=== PATIENT | female | born 1995 | race Caucasian/White ===

== ENCOUNTER 2017-03-21 11:32 | Outpatient (CLI) | payer MEDICAID | END 2017-03-21 13:33 | disposition home or self-care (01) | LOC: MW.OBCHECK 11:32 → MW.OB 11:35 → MW.OBCHECK 13:33 | PROVIDERS: ATTEND Obstetrics & Gynecology | DX: O26.893 Other specified pregnancy related conditions, third trimester (principal); R10.9 Unspecified abdominal pain; Z3A.36 36 weeks gestation of pregnancy | CPT/HCPCS: 59025 ==

== ENCOUNTER 2017-03-22 14:27 | Inpatient (IN) | payer MEDICAID ==
[2017-03-22] MEDS ORDERED: Morphine 2 MG/ML Syringe IVPUSH ONE (16:59)
[2017-03-22] MEDS: Lactated Ringers 1,000 ML IV SCH ×3 (17:25→19:50)
[2017-03-22] MEDS ORDERED: Water For Irrigation,Sterile 1,000 ML Container IRR PRN (18:20)
[2017-03-22] MEDS ORDERED: Sodium Chloride 0.9% 2.5 ML Syringe FLUSH PRN (18:20)
[2017-03-22] MEDS ORDERED: Methylergonovine 0.2 MG/1 ML Amp IM PRN (18:20)
[2017-03-22] MEDS ORDERED: Carboprost Tromethamine 250 MCG/1 ML Amp IM PRN (18:20)
[2017-03-22] MEDS ORDERED: Butorphanol 1 MG/ML SDV IVPUSH PRN (18:20)
[2017-03-22] MEDS ORDERED: Misoprostol 200 MCG Tab PO PRN (18:20)
[2017-03-22] MEDS ORDERED: Sodium Chloride 0.9% 10 ML Syringe FLUSH PRN (18:20)
[2017-03-22] MEDS ORDERED: Nalbuphine 10 MG/1 ML Vial IVPUSH PRN (18:20)
[2017-03-22] MEDS ORDERED: Lidocaine 1% 50 ML MDV INJECT PRN (18:20)
--- NOTE | 2017-03-22 18:21 | PCM.PREANE ---
Preanesthetic Assessment - Anesthesia/Transfusion/Family Hx Anesthesia History: Prior Anesthesia Without Reaction Family History of Anesthesia Reaction: No - Review of Systems Other: Reports: None - Physical Assessment Height: 5 ft 1.81 in Weight: 66.587 kg ASA Class: 2 Mental Status: Alert & Oriented x3 Airway Class: Mallampati = 1 Dentition: Reports: Normal Dentition Thyro-Mental Finger Breadths: 3 Mouth Opening Finger Breadths: 3 ROM/Head Extension: Full - Allergies Allergies/Adverse Reactions: Allergies Allergy/AdvReac Type Severity Reaction Status Date / Time No Known Allergies Allergy Verified 02/25/17 09:03 - Blood Blood Available: Yes Product(s) Available: PRBC - Acknowledgements Anesthesia Type Planned: Epidural Pt an Appropriate Candidate for the Planned Anesthesia: Yes Alternatives and Risks of Anesthesia Discussed w Pt/Guardian: Yes Pt/Guardian Understands and Agrees with Anesthesia Plan: Yes PreAnesthesia Questionnaire - Past Surgical History HEENT Surgical History: Reports: Tonsillectomy - CURRENT (IN HOUSE) MEDS Current Meds: Current Medications Lactated Ringer's (Ringers, Lactated) 1,000 mls @ 1,000 mls/hr IV .BOLUS DAVID Last Admin: 03/22/17 17:25 Dose: 1,000 mls/hr Discontinued Medications Morphine Sulfate (Morphine) 2 mg IVPUSH ONETIME ONE Stop: 03/22/17 17:00 Last Admin: 03/22/17 17:29 Dose: 2 mg
[2017-03-22] MEDS ORDERED: fentaNYL 100 MCG/2 ML SDV ONE (19:06)
[2017-03-22] MEDS ORDERED: Ropivacaine HCl/PF 100 ML ONE (19:07)
[2017-03-22] MEDS ORDERED: Ropivacaine 0.2% 2 MG/ML 20 ML SDV ONE (19:07)
[2017-03-23] MEDS: Lactated Ringers 1,000 ML IV SCH ×2 (00:55→01:54)
[2017-03-23] MEDS ORDERED: Acetaminophen 500 MG Tab PO STA (01:40)
[2017-03-23] MEDS ORDERED: Sodium Chloride 0.9% 500 ML IV ONE (01:42)
[2017-03-23] MEDS ORDERED: Acetaminophen 500 MG Tab ONE (01:44)
[2017-03-23] MEDS ORDERED: Oxytocin/Lactated Ringers 30 UNIT/500 ML BAG ONE (04:26)
[2017-03-23] MEDS ORDERED: Ropivacaine HCl/PF 100 ML ONE (04:31)
[2017-03-23] MEDS ORDERED: fentaNYL 100 MCG/2 ML SDV ONE (04:31)
[2017-03-23] MEDS ORDERED: Bupivacaine 0.5% 10 ML SDV ONE (06:01)
[2017-03-23] MEDS ORDERED: Lanolin 100% Cream 7 GM Tube TOP PRN (09:23)
[2017-03-23] MEDS ORDERED: oxyCODONE 5 MG Tab PO PRN (09:23)
[2017-03-23] MEDS ORDERED: Docusate Sodium 100 MG Cap PO PRN (09:23)
[2017-03-23] MEDS ORDERED: Benzocaine/Menthol 20%-0.5% Spray 78 GM Cannister TOP PRN (09:23)
[2017-03-23] MEDS ORDERED: Bisacodyl 10 MG Supp RECTAL PRN (09:23)
[2017-03-23] MEDS ORDERED: Witch Hazel Medicated Pads 40/Jar TOP PRN (09:23)
[2017-03-23] MEDS ORDERED: Methylergonovine 0.2 MG/1 ML Amp IM PRN (09:23)
[2017-03-23] MEDS: Ibuprofen 800 MG Tab PO PRN (10:28)
[2017-03-23] MEDS: Acetaminophen 500 MG Tab PO PRN (10:30)
--- NOTE | 2017-03-23 14:29 | OR ---
SURGEON: Kym Contreras M.D. DATE OF PROCEDURE: 03/23/2017 PREOPERATIVE DIAGNOSES: A 39 and 5/7th week intrauterine , active spontaneous labor, group B strep negative with meconium-stained amniotic fluid. POSTOPERATIVE DIAGNOSES: A 39 and 5/7th week intrauterine , active spontaneous labor, group B strep negative with meconium-stained amniotic fluid. PROCEDURE: Term spontaneous vaginal delivery with repair of vaginal laceration. ANESTHESIA: Epidural. ESTIMATED BLOOD LOSS: Less than 300 mL. FINDINGS: Live born female, score 7 and 9, weighing 2590 g. Placenta was delivered spontaneous, Schultze intact with 3 vessels. However, it was very malodorous. Therefore, cultures were obtained. COMPLICATIONS: None known. DISPOSITION: Stable to recovery. BRIEF HISTORY: This is a 21-year-old female. She is G1, P0. She presents at 39 and 4/7th weeks' with active spontaneous labor. She presented in the prodromal stage, was admitted when she was 3 to 4 cm. She continued to labor spontaneously. She received an epidural for pain control. heart tones were overall category 1 with episodes of category 2, rupture of membranes that was made of thick meconium. She had a single temp during labor which resolved. She was not started on antibiotics. She progressed to complete. DESCRIPTION OF PROCEDURE: With the patient in the dorsal lithotomy position, the patient pushed over 1- hour time period to a 5+ station, at which time the head was delivered spontaneously and atraumatically over the perineum with support. Deep suction was performed on the perineum due to meconium. The anterior and posterior shoulders were delivered without any difficulty with subsequent delivery of the infant's body. The was placed on the maternal abdomen. Immediately upon delivery of the , a foul odor of the amniotic fluid was noted. The was stimulated and had score of 7 and 9. After the cord had ceased to pulsate, it was doubly clamped and cut. Cord blood was collected for cord ABGs as well as routine cord blood sampling. Pitocin was initiated after delivery of the to assist with delivery of the placenta, which was delivered spontaneously, Schultze intact with 3 vessels. Upon inspection of the pelvis and perineum, there were no periurethral, cervical, rectal, or perineal lacerations. At 5 o'clock, there was a 1.5 cm vaginal laceration that was repaired with a single [id number] suture of 3-0 Monocryl. Final sponge, needle, and instrument count were correct. There were no known complications. Mother and remained in LDRP in good condition. HODA MERIDA /[id number]
--- NOTE | 2017-03-23 14:48 | PCM48HPAN ---
Post Anesthesia Note - EVALUATION WITHIN 48HRS OF ANESTHETIC Vital Signs in Normal Range: Yes Patient Participated in Evaluation: Yes Respiratory Function Stable: Yes Airway Patent: Yes Cardiovascular Function Stable: Yes Hydration Status Stable: Yes Pain Control Satisfactory: Yes Nausea and Vomiting Control Satisfactory: Yes Mental Status Recovered: Yes
[2017-03-24] MEDS: Ibuprofen 800 MG Tab PO PRN ×2 (01:36→09:19)
[2017-03-24] MEDS: Acetaminophen 500 MG Tab PO PRN ×3 (04:59→17:09)
--- NOTE | 2017-03-24 08:15 | PCM.PNPP ---
- General Info Date of Service: 03/24/17 Functional Status: Reports: pain controlled, tolerating diet, urinating - Review of Systems General: Denies: Fever, Weakness Pulmonary: Denies: shortness of breath, pleuritic chest pain, cough Cardiovascular: Denies: Chest Pain, Palpitations, Dyspnea on Exertion Gastrointestinal: Reports: No symptoms Psychiatric: Reports: no symptoms - General Info Date of Service: 03/24/17 - Patient Data Vital Signs - most recent: Last Vital Signs Temp 36.2 C 03/24/17 04:00 Pulse 74 03/24/17 04:00 Resp 14 03/24/17 04:00 BP 109/58 L 03/24/17 04:00 Pulse Ox 98 03/24/17 04:00 Weight - most recent: 66.224 kg I&O - last 24 hours: Intake & Output 03/23/17 03/24/17 03/24/17 22:59 06:59 14:59 Intake Total 0 Balance 0 Lab Results - last 24 hrs: Laboratory Results - last 24 hr 03/23/17 03/24/17 Range/Units 10:25 04:31 Hgb 10.6 L (12.0-16.0) g/dL Hct 31.7 L (36.0-46.0) % Screen NEGATIVE RhIG Candidate? YES Rhogam Indicated YES, BABY RH POS H Med Orders - Current: Current Medications Acetaminophen (Tylenol Extra Strength) 1,000 mg PO Q4H PRN PRN Reason: Pain Last Admin: 03/24/17 04:59 Dose: 1,000 mg Benzocaine/Menthol (Dermoplast Pain Relief 20%-0.5% [place]) 78 gm TOP ASDIRECTED PRN PRN Reason: Perineal Comfort Measure Last Admin: 03/23/17 10:27 Dose: 1 can Bisacodyl (Dulcolax) 10 mg RECTAL .ONCE PRN PRN Reason: Constipation Docusate Sodium (Colace) 100 mg PO BID PRN PRN Reason: Constipation Last Admin: 03/23/17 10:30 Dose: 100 mg Emollient Ointment (Lansinoh Hpa) 0 gm TOP ASDIRECTED PRN PRN Reason: Sore Nipples Last Admin: 03/23/17 10:28 Dose: 1 tube Ibuprofen (Motrin) 800 mg PO Q6H PRN PRN Reason: Pain Last Admin: 03/24/17 01:36 Dose: 800 mg Methylergonovine Maleate (Methergine) 0.2 mg IM .ONCE PRN PRN Reason: Excessive Vaginal Bleeding Oxycodone HCl (Oxycodone) 5 mg PO Q2H PRN PRN Reason: Pain Last Admin: 03/23/17 17:12 Dose: 5 mg Witch Shahrzad (Tucks) 1 pad TOP ASDIRECTED PRN PRN Reason: comfort care Last Admin: 03/23/17 10:27 Dose: 1 tub Discontinued Medications Acetaminophen (Tylenol Extra Strength) 1,000 mg PO ONETIME STA Stop: 03/23/17 01:41 Last Admin: 03/23/17 01:46 Dose: 1,000 mg Acetaminophen (Tylenol Extra Strength) Confirm Administered Dose 1,000 mg .ROUTE .STK-MED ONE Stop: 03/23/17 01:45 Last Admin: 03/23/17 01:56 Dose: Not Given Bupivacaine HCl (Sensorcaine-Mpf 0.5%) Confirm Administered Dose 10 ml .ROUTE .STK-MED ONE Stop: 03/23/17 06:02 Last Admin: 03/24/17 01:26 Dose: Not Given Butorphanol Tartrate (Stadol) 1 mg IVPUSH Q1H PRN PRN Reason: Pain Carboprost Tromethamine (Hemabate Ds) 250 mcg IM ASDIRECTED PRN PRN Reason: Post Hemorrhage Fentanyl (Sublimaze) Confirm Administered Dose 200 mcg .ROUTE .STK-MED ONE Stop: 03/22/17 19:07 Last Admin: 03/22/17 21:11 Dose: Not Given Fentanyl (Sublimaze) Confirm Administered Dose 200 mcg .ROUTE .STK-MED ONE Stop: 03/23/17 04:32 Last Admin: 03/24/17 01:26 Dose: Not Given Lactated Ringer's (Ringers, Lactated) 1,000 mls @ 1,000 mls/hr IV .BOLUS DAVID Last Admin: 03/23/17 01:54 Dose: 150 mls/hr Lactated Ringer's (Ringers, Lactated) 1,000 mls @ 150 mls/hr IV ASDIRECTED DAVID Last Admin: 03/23/17 00:55 Dose: 150 mls/hr Ropivacaine (Naropin 0.2%) Confirm Administered Dose 100 mls @ as directed .ROUTE .[email or web address] ONE Stop: 03/22/17 19:08 Last Admin: 03/22/17 21:10 Dose: Not Given Sodium Chloride (Normal Saline) 500 mls @ 1,000 mls/hr IV ONETIME ONE Stop: 03/23/17 02:11 Last Admin: 03/23/17 01:56 Dose: Not Given Oxytocin/Lactated Ringer's (Pitocin In Lr 30 Units/500 Ml) Confirm Administered Dose 30 unit in 500 mls @ as directed .ROUTE .[email or web address] ONE Stop: 03/23/17 04:27 Last Admin: 03/23/17 09:03 Dose: 30 unit Ropivacaine (Naropin 0.2%) Confirm Administered Dose 100 mls @ as directed .ROUTE [email or web address] ONE Stop: 03/23/17 04:32 Last Admin: 03/24/17 01:26 Dose: Not Given Lidocaine HCl (Xylocaine 1%) 50 ml INJECT .ONCE PRN PRN Reason: Laceration repair Methylergonovine Maleate (Methergine) 0.2 mg IM ASDIRECTED PRN PRN Reason: Post Hemorrhage Misoprostol (Cytotec) 200 mcg PO .ONCE PRN PRN Reason: Post Hemorrhage Morphine Sulfate (Morphine) 2 mg IVPUSH ONETIME ONE Stop: 03/22/17 17:00 Last Admin: 03/22/17 17:29 Dose: 2 mg Nalbuphine HCl (Nubain) 10 mg IVPUSH Q1H PRN PRN Reason: Pain (severe 7-10) Stop: 03/22/17 20:21 Ropivacaine (Naropin 0.2%) Confirm Administered Dose 20 ml .ROUTE [email or web address] ONE Stop: 03/22/17 19:08 Last Admin: 03/22/17 21:10 Dose: Not Given Sodium Chloride (Saline Flush) 10 ml FLUSH ASDIRECTED PRN PRN Reason: Keep Vein Open Sodium Chloride (Saline Flush) 2.5 ml FLUSH ASDIRECTED PRN PRN Reason: Keep Vein Open Sterile Water (Sterile Water For Irrigation) 1,000 ml IRR ASDIRECTED PRN PRN Reason: delivery Last Admin: 03/23/17 09:00 Dose: 1,000 ml - Interaction Infant Disposition, : to Nursery Infant Feeding: Attempted ; Nursed Fair/Poor Support Person: Mother, Sister - Recovery Exam Fundal Tone: Firm Fundal Level: 1 Fingerbreadths Below Umbilicus Fundal Placement: Midline Lochia Amount: Scant, Small Lochia Color: Rubra/Red Perineum Description: Intact, Minimal Bruising/Swelling Episiotomy/Laceration: None Bladder Status: Voiding Urinary Elimination: Voided - Exam General: alert, oriented Lungs: Clear to auscultation, Normal respiratory effort Cardiovascular: Regular Rate, Regular Rhythm Abdomen: bowel sounds present, soft, no tenderness, no distension Extremities: no edema Psy/Mental Status: alert - Problem List & Annotations (1) Vaginal delivery SNOMED Code(s): 279306541 Code(s): O80 - ENCOUNTER FOR FULL-TERM UNCOMPLICATED DELIVERY Status: Acute Current Visit: Yes - Problem List Review Problem List Initiated/Reviewed/Updated: Yes - Assessment Assessment:: PPD#1 from . Minimal pain and lochia. Will work on today. Aim for discharge tomorrow am. - Plan Plan:: Continue routine cares. Anticipate discharge home tomorrow.
--- NOTE | 2017-03-25 08:14 | PCM.PNPP ---
- General Info Date of Service: 03/25/17 Functional Status: Reports: pain controlled, tolerating diet, ambulating, urinating - Review of Systems General: Denies: Fever, Weakness, Fatigue Pulmonary: Denies: shortness of breath, pleuritic chest pain, cough Cardiovascular: Denies: Chest Pain, Palpitations, Dyspnea on Exertion Gastrointestinal: Denies: Abdominal pain Genitourinary: Reports: no symptoms Psychiatric: Reports: no symptoms - General Info Date of Service: 03/25/17 - Patient Data Vital Signs - most recent: Last Vital Signs Temp 36.6 C 03/25/17 04:00 Pulse 83 03/25/17 04:00 Resp 12 03/25/17 04:00 BP 117/59 L 03/25/17 04:00 Pulse Ox 100 03/25/17 04:00 Weight - most recent: 66.224 kg Med Orders - Current: Current Medications Acetaminophen (Tylenol Extra Strength) 1,000 mg PO Q4H PRN PRN Reason: Pain Last Admin: 03/24/17 17:09 Dose: 1,000 mg Benzocaine/Menthol (Dermoplast Pain Relief 20%-0.5% [place]) 78 gm TOP ASDIRECTED PRN PRN Reason: Perineal Comfort Measure Last Admin: 03/23/17 10:27 Dose: 1 can Bisacodyl (Dulcolax) 10 mg RECTAL .ONCE PRN PRN Reason: Constipation Docusate Sodium (Colace) 100 mg PO BID PRN PRN Reason: Constipation Last Admin: 03/23/17 10:30 Dose: 100 mg Emollient Ointment (Lansinoh Hpa) 0 gm TOP ASDIRECTED PRN PRN Reason: Sore Nipples Last Admin: 03/23/17 10:28 Dose: 1 tube Ibuprofen (Motrin) 800 mg PO Q6H PRN PRN Reason: Pain Last Admin: 03/24/17 09:19 Dose: 800 mg Methylergonovine Maleate (Methergine) 0.2 mg IM .ONCE PRN PRN Reason: Excessive Vaginal Bleeding Oxycodone HCl (Oxycodone) 5 mg PO Q2H PRN PRN Reason: Pain Last Admin: 03/23/17 17:12 Dose: 5 mg Witch Shahrzad (Tucks) 1 pad TOP ASDIRECTED PRN PRN Reason: comfort care Last Admin: 03/23/17 10:27 Dose: 1 tub Discontinued Medications Acetaminophen (Tylenol Extra Strength) 1,000 mg PO ONETIME STA Stop: 03/23/17 01:41 Last Admin: 03/23/17 01:46 Dose: 1,000 mg Acetaminophen (Tylenol Extra Strength) Confirm Administered Dose 1,000 mg .ROUTE .[facility]-MED ONE Stop: 03/23/17 01:45 Last Admin: 03/23/17 01:56 Dose: Not Given Bupivacaine HCl (Sensorcaine-Mpf 0.5%) Confirm Administered Dose 10 ml .ROUTE .[facility]-MED ONE Stop: 03/23/17 06:02 Last Admin: 03/24/17 01:26 Dose: Not Given Butorphanol Tartrate (Stadol) 1 mg IVPUSH Q1H PRN PRN Reason: Pain Carboprost Tromethamine (Hemabate Ds) 250 mcg IM ASDIRECTED PRN PRN Reason: Post Hemorrhage Fentanyl (Sublimaze) Confirm Administered Dose 200 mcg .ROUTE .[facility] ONE Stop: 03/22/17 19:07 Last Admin: 03/22/17 21:11 Dose: Not Given Fentanyl (Sublimaze) Confirm Administered Dose 200 mcg .ROUTE .[facility]-MED ONE Stop: 03/23/17 04:32 Last Admin: 03/24/17 01:26 Dose: Not Given Lactated Ringer's (Ringers, Lactated) 1,000 mls @ 1,000 mls/hr IV .BOLUS [facility] Last Admin: 03/23/17 01:54 Dose: 150 mls/hr Lactated Ringer's (Ringers, Lactated) 1,000 mls @ 150 mls/hr IV ASDIRECTED [facility] Last Admin: 03/23/17 00:55 Dose: 150 mls/hr Ropivacaine (Naropin 0.2%) Confirm Administered Dose 100 mls @ as directed .ROUTE .[facility]-MED ONE Stop: 03/22/17 19:08 Last Admin: 03/22/17 21:10 Dose: Not Given Sodium Chloride (Normal Saline) 500 mls @ 1,000 mls/hr IV ONETIME ONE Stop: 03/23/17 02:11 Last Admin: 03/23/17 01:56 Dose: Not Given Oxytocin/Lactated Ringer's (Pitocin In Lr 30 Units/500 Ml) Confirm Administered Dose 30 unit in 500 mls @ as directed .ROUTE .[employer]MED ONE Stop: 03/23/17 04:27 Last Admin: 03/23/17 09:03 Dose: 30 unit Ropivacaine (Naropin 0.2%) Confirm Administered Dose 100 mls @ as directed .ROUTE .[employer] ONE Stop: 03/23/17 04:32 Last Admin: 03/24/17 01:26 Dose: Not Given Lidocaine HCl (Xylocaine 1%) 50 ml INJECT .ONCE PRN PRN Reason: Laceration repair Methylergonovine Maleate (Methergine) 0.2 mg IM ASDIRECTED PRN PRN Reason: Post Hemorrhage Misoprostol (Cytotec) 200 mcg PO .ONCE PRN PRN Reason: Post Hemorrhage Morphine Sulfate (Morphine) 2 mg IVPUSH ONETIME ONE Stop: 03/22/17 17:00 Last Admin: 03/22/17 17:29 Dose: 2 mg Nalbuphine HCl (Nubain) 10 mg IVPUSH Q1H PRN PRN Reason: Pain (severe 7-10) Stop: 03/22/17 20:21 Ropivacaine (Naropin 0.2%) Confirm Administered Dose 20 ml .ROUTE .[employer] ONE Stop: 03/22/17 19:08 Last Admin: 03/22/17 21:10 Dose: Not Given Sodium Chloride (Saline Flush) 10 ml FLUSH ASDIRECTED PRN PRN Reason: Keep Vein Open Sodium Chloride (Saline Flush) 2.5 ml FLUSH ASDIRECTED PRN PRN Reason: Keep Vein Open Sterile Water (Sterile Water For Irrigation) 1,000 ml IRR ASDIRECTED PRN PRN Reason: delivery Last Admin: 03/23/17 09:00 Dose: 1,000 ml - Infant Interaction Infant Disposition, : to Nursery Infant Feeding: Attempted ; Nursed Fair/Poor Support Person: Mother, Sister - Recovery Exam Fundal Tone: Firm Fundal Level: 2 Fingerbreadths Below Umbilicus Fundal Placement: Midline Lochia Amount: Small Lochia Color: Rubra/Red Perineum Description: Intact, Minimal Bruising/Swelling Episiotomy/Laceration: Approximated Bladder Status: Nonpalpable Urinary Elimination: Voided - Exam General: alert, oriented Neck: supple Lungs: Clear to auscultation, Normal respiratory effort Cardiovascular: Regular Rate, Regular Rhythm Abdomen: bowel sounds present, soft, no tenderness, no distension Extremities: edema (trace) Psy/Mental Status: alert, normal affect, normal mood - Problem List & Annotations (1) Vaginal delivery SNOMED Code(s): 035728966 Code(s): O80 - ENCOUNTER FOR FULL-TERM UNCOMPLICATED DELIVERY Status: Acute Current Visit: Yes - Problem List Review Problem List Initiated/Reviewed/Updated: Yes - Assessment Assessment:: PPD#2 from . Minimal pain and lochia. Discharge home today. - Plan Plan:: Discharge instructions reviewed. Nothing in the vagina for 6 weeks. Continue PNV while breast feeding. Can use OTC ibuprofen/tylenol as needed for pain. Instructed patient to call if she develops fever greater than 101 or bleeding through a large pad an hour. F/U with [facility] in 6 weeks.
[2017-03-25 08:23] VITALS: BP 113/57
== END 2017-03-25 13:04 | disposition home or self-care (01) | DRG 775 ==
LOC: MW.OBCHECK 14:27 → MW.OB 14:40 → MW.OBCHECK 18:20 → MW.OB 18:20 → UNDOADMOB 18:44 → OBSVTOIN 03-23 09:00 → MW.OB 03-23 12:11 → UNDODISIN 03-24 19:40
PROVIDERS: ADMIT Obstetrics & Gynecology; ATTEND Obstetrics & Gynecology
PROC: 10E0XZZ Delivery of Products of Conception, External Approach (ICD-10-PCS; principal; 2017-03-23)
PROC: 10907ZC Drainage of Amniotic Fluid, Therapeutic from Products of Conception, Via Natural or Artificial Opening (ICD-10-PCS; 2017-03-23)
PROC: 0HQ9XZZ Repair Perineum Skin, External Approach (ICD-10-PCS; 2017-03-23)
DX: O70.0 First degree perineal laceration during delivery (principal); O77.0 Labor and delivery complicated by meconium in amniotic fluid; Z3A.39 39 weeks gestation of pregnancy; Z37.0 Single live birth
CPT/HCPCS: 01967; 36415; 59025; 85014; 85018; 85027; 85460; 86850; 86900; 86901; 87070; 87075; 88307; A9270-GY; J2270; J2790; J2795; J3010; J7120

== ENCOUNTER 2017-11-05 00:26 | Emergency (ER) | payer SELFPAY ==
[2017-11-05] MEDS ORDERED: Ondansetron 4 MG/2 ML SDV IVPUSH ONE (00:32)
[2017-11-05] MEDS ORDERED: Sodium Chloride 0.9% 10 ML Syringe FLUSH PRN (00:32)
[2017-11-05] MEDS ORDERED: Sodium Chloride 0.9% 2.5 ML Syringe FLUSH PRN (00:32)
[2017-11-05] MEDS ORDERED: Sodium Chloride 0.9% 1,000 ML IV ONE (00:32)
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
[2017-11-05 01:12] LABS: CHLORIDE,CL 112 mmol/L (98-110); SODIUM,NA 145 mmol/L (136-146)
[2017-11-05 02:43] VITALS: BP 99/63
--- NOTE | 2017-11-07 13:23 | CT ---
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 Site : 1995 Study: CT Head [id number] 1:54:56 AM Ordering Physician: Odilia Catalan Final Report: INDICATION: Change in mental status TECHNIQUE: CT head without contrast. COMPARISON: None. FINDINGS: CSF spaces: Within normal limits for age. Brain parenchyma: The durand-white differentiation is normal. No sign of mass, hemorrhage, or midline shift. Skull base and calvarium: The visualized paranasal sinuses and mastoid air cells demonstrate no acute or significant findings. The visualized orbits are grossly unremarkable. No skull fractures. IMPRESSION: Unremarkable noncontrast head CT. Dictated by Cecilio Park MD @ 11/05/2017 2:09:00 AM Dictated by: Cecilio Park MD @ 11/05/2017 02:09:05 (Electronic Signature) Report Signed by Proxy. HELEN HAYES HOSPITALConstantin
== END 2017-11-05 02:30 | disposition home or self-care (01) ==
LOC: MW.ED 00:26
DX: F10.120 Alcohol abuse with intoxication, uncomplicated (principal)
CPT/HCPCS: 36415; 70450; 80053; 80305; 81001; 81025; 82150; 83690; 85025; 96361; 96374; 99285; G0480; J2405; J7040; 99284

== ENCOUNTER 2019-04-22 05:32 | Inpatient (IN) | payer MEDICAID ==
[2019-04-22] MEDS ORDERED: Water For Irrigation,Sterile 1,000 ML Container IRR PRN (07:19)
[2019-04-22] MEDS ORDERED: Sodium Chloride 0.9% 2.5 ML Syringe FLUSH PRN (07:19)
[2019-04-22] MEDS ORDERED: Sodium Chloride 0.9% 10 ML SDV IV PRN (07:19)
[2019-04-22] MEDS ORDERED: Misoprostol 200 MCG Tab PO PRN (07:19)
[2019-04-22] MEDS ORDERED: Methylergonovine 0.2 MG/1 ML Amp IM PRN (07:19)
[2019-04-22] MEDS ORDERED: Lidocaine 1% 50 ML MDV INJECT PRN (07:19)
[2019-04-22] MEDS ORDERED: Sodium Chloride 0.9% 10 ML Syringe FLUSH PRN (07:19)
[2019-04-22] MEDS ORDERED: Nalbuphine 10 MG/1 ML Vial IVPUSH PRN ×2 (07:19→11:13)
[2019-04-22] MEDS ORDERED: Carboprost Tromethamine 250 MCG/1 ML Amp IM PRN (07:19)
[2019-04-22] MEDS ORDERED: Ondansetron 4 MG/2 ML SDV IV PRN (07:19)
[2019-04-22] MEDS ORDERED: Tranexamic Acid 1,000 MG in Sodium Chloride 0.9% 100 ML IV PRN (07:19)
[2019-04-22] MEDS ORDERED: Butorphanol 1 MG/ML SDV IVPUSH PRN (07:19)
[2019-04-22] MEDS ORDERED: Lactated Ringers 1,000 ML IV SCH ×2 (07:30→12:15)
[2019-04-22] MEDS ORDERED: Oxytocin/0.9 % Sodium Chloride 30 UNIT/500 ML BAG IV SCH (07:30)
[2019-04-22] MEDS ORDERED: Propofol 200 MG/20 ML SDV ONE (09:34)
[2019-04-22] MEDS ORDERED: fentaNYL 100 MCG/2 ML SDV ONE (09:34)
[2019-04-22] MEDS ORDERED: Ondansetron 4 MG/2 ML SDV ONE (09:34)
[2019-04-22] MEDS ORDERED: ePHEDrine 50 MG/ML SDV ONE (09:35)
[2019-04-22] MEDS ORDERED: Phenylephrine/Normal Saline 100 MCG/ML 10 ML Syringe ONE (09:35)
[2019-04-22] MEDS ORDERED: Morphine PF 10 MG/10 ML SDV ONE (09:36)
[2019-04-22] MEDS ORDERED: Sodium Chloride 0.9% 0 ML ONE (09:38)
[2019-04-22] MEDS ORDERED: Oxytocin/0.9 % Sodium Chloride 30 UNIT/500 ML BAG ONE (09:38)
[2019-04-22] MEDS ORDERED: Sodium Chloride 0.9% 20 ML ONE (09:39)
[2019-04-22] MEDS ORDERED: ceFAZolin/Dextrose,Iso-Osmotic 2 GM/50 ML Duplex Bag IV ONE (09:42)
[2019-04-22] MEDS ORDERED: Octyl 2-Cyanoacrylate 1 Tube ONE (09:57)
[2019-04-22] MEDS ORDERED: fentaNYL 100 MCG/2 ML SDV IVPUSH PRN (11:13)
[2019-04-22] MEDS ORDERED: Acetaminophen/oxyCODONE 325-5 MG Tab PO PRN ×2 (11:13→12:08)
[2019-04-22] MEDS ORDERED: Naloxone 0.4 MG/ML Syringe IVPUSH PRN (11:13)
[2019-04-22] MEDS ORDERED: Ondansetron 4 MG/2 ML SDV IVPUSH PRN ×2 (11:13→12:08)
[2019-04-22] MEDS ORDERED: diphenhydrAMINE 50 MG/ML SDV IVPUSH PRN ×2 (11:13→12:08)
[2019-04-22] MEDS ORDERED: Ketorolac 30 MG/ML SDV ONE (11:27)
--- NOTE | 2019-04-22 11:41 | PCM.POSTAN ---
POST ANESTHESIA ASSESSMENT - MENTAL STATUS Mental Status: Alert - VITAL SIGNS Pulse Rate: 77 SaO2: 94 Resp Rate: 15 Blood Pressure: 111/61 Temperature: 36.2 C - RESPIRATORY Respiratory Status: Respiratory Rate WNL - CARDIOVASCULAR CV Status: Pulse Rate WNL - GASTROINTESTINAL GI Status: No Symptoms - PAIN Pain Score: 0 (SAB still present. Duramorph given. Ofirmev given.) - POST OP HYDRATION Hydration Status: Adequate & Stable - OBSERVATIONS Free Text/Narrative:: Doing well. No problems noted. Ready for discharge from PACU
--- NOTE | 2019-04-22 11:59 | PCM.PREANE ---
Preanesthetic Assessment - Anesthesia/Transfusion/Family Hx Anesthesia History: Prior Anesthesia Without Reaction Transfusion History: No Prior Transfusion(s) - Review of Systems General: No Symptoms Pulmonary: No Symptoms Cardiovascular: No Symptoms Gastrointestinal: No Symptoms Neurological: No Symptoms Other: Reports: None - Physical Assessment NPO Status Date: 04/22/19 NPO Status Time: 03:00 Pulse: 77 O2 Sat by Pulse Oximetry: 94 Respiratory Rate: 15 Blood Pressure: 111/61 Temperature: 36.2 C Vital Signs: Last Vital Signs Temp 36.2 C 04/22/19 11:41 Pulse 77 04/22/19 11:41 Resp 15 04/22/19 11:41 BP 111/61 04/22/19 11:41 Pulse Ox 94 L 04/22/19 11:41 Height: 1.57 m Weight: 70.307 kg ASA Class: 2 Airway Class: Mallampati = 2 Dentition: Reports: Normal Dentition Thyro-Mental Finger Breadths: 3 Mouth Opening Finger Breadths: 3 ROM/Head Extension: Full Lungs: Clear to Auscultation Cardiovascular: Regular Rate - Lab Values: Laboratory Last Values WBC 9.33 K/uL (4.0-11.0) 04/22/19 07:46 RBC 3.94 M/uL (4.30-5.90) L 04/22/19 07:46 Hgb 10.7 g/dL (12.0-16.0) L 04/22/19 07:46 Hct 33.9 % (36.0-46.0) L 04/22/19 07:46 MCV 86.0 fL (80.0-98.0) 04/22/19 07:46 MCH 27.2 pg (27.0-32.0) 04/22/19 07:46 MCHC 31.6 g/dL (31.0-37.0) 04/22/19 07:46 RDW Std Deviation 46.3 fl (28.0-62.0) 04/22/19 07:46 RDW Coeff of Lenka 15 % (11.0-15.0) 04/22/19 07:46 Plt Count 235 K/uL (150-400) 04/22/19 07:46 MPV 12.40 fL (7.40-12.00) H 04/22/19 07:46 Nucleated RBC % 0.0 /100WBC 04/22/19 07:46 Nucleated RBCs # 0 K/uL 04/22/19 07:46 Membrane Rupture POSITIVE 04/22/19 06:15 Blood Type O NEGATIVE 04/22/19 07:46 Antibody Screen NEGATIVE 04/22/19 07:46 - Allergies Allergies/Adverse Reactions: Allergies Allergy/AdvReac Type Severity Reaction Status Date / Time No Known Allergies Allergy Verified 11/05/17 00:36 - Blood Blood Available: No Product(s) Available: None - Anesthesia Plan Pre-Op Medication Ordered: None - Acknowledgements Anesthesia Type Planned: Spinal Pt an Appropriate Candidate for the Planned Anesthesia: Yes Alternatives and Risks of Anesthesia Discussed w Pt/Guardian: Yes Pt/Guardian Understands and Agrees with Anesthesia Plan: Yes Additional Comments: Discussed with patient. Understands risks and benefits. ? answered. Fluid bolus given. 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: Psychiatric History: Reports: Anxiety - Infectious Disease History Infectious Disease History: Reports: Chicken Pox, Shingles - Past Surgical History HEENT Surgical History: Reports: Tonsillectomy - SUBSTANCE USE Smoking Status *Q: Former Smoker Tobacco Use Within Last Twelve Months: No Second Hand Smoke Exposure: No Recreational Drug Use History: No - HOME MEDS Home Medications: Home Meds Vits #93/Iron Fum/FA [ Formula Tablet] 1 each PO DAILY [History] valACYclovir HCl [Valtrex] 500 mg PO DAILY 03/27/19 [History] - CURRENT (IN HOUSE) MEDS Current Meds: Current Medications Butorphanol Tartrate (Stadol) 1 mg IVPUSH Q1H PRN PRN Reason: Pain Carboprost Tromethamine (Hemabate Ds) 250 mcg IM ASDIRECTED PRN PRN Reason: Post Hemorrhage Diphenhydramine HCl (Benadryl) 25 mg IVPUSH Q4H PRN PRN Reason: Itching Stop: 04/23/19 11:13 Fentanyl (Sublimaze) 50 mcg IVPUSH Q1H PRN PRN Reason: Pain (severe 7-10) Tranexamic Acid 1,000 mg/ (Sodium Chloride) 110 mls @ 660 mls/hr IV ONETIME PRN PRN Reason: Bleeding Lactated Ringer's (Ringers, Lactated) 1,000 mls @ 150 mls/hr IV ASDIRECTED [facility] Last Admin: 04/22/19 09:04 Dose: 150 mls/hr Oxytocin/Sodium Chloride (Oxytocin 30 Unit/500 Ml-Ns) 30 unit in 500 mls @ 999 mls/hr IV TITRATE [facility] Lidocaine HCl (Xylocaine 1%) 50 ml INJECT ONETIME PRN PRN Reason: Laceration repair Methylergonovine Maleate (Methergine) 0.2 mg IM ASDIRECTED PRN PRN Reason: Post Hemorrhage Misoprostol (Cytotec) 200 mcg PO ONETIME PRN PRN Reason: Post Hemorrhage Nalbuphine HCl (Nubain) 10 mg IVPUSH Q1H PRN PRN Reason: Pain (severe 7-10) Nalbuphine HCl (Nubain) 5 mg IVPUSH ASDIRECTED PRN PRN Reason: Itching Naloxone HCl (Narcan) 0.1 mg IVPUSH ONETIME PRN PRN Reason: Respiratory Depression Stop: 04/23/19 11:13 Ondansetron HCl (Zofran) 4 mg IV Q4H PRN PRN Reason: Nausea/Vomiting Ondansetron HCl (Zofran) 4 mg IVPUSH Q6H PRN PRN Reason: Nausea Oxycodone/Acetaminophen (Percocet 325-5 Mg) 2 tab PO Q6H PRN PRN Reason: Pain (moderate 4-6) Sodium Chloride (Saline Flush) 10 ml FLUSH ASDIRECTED PRN PRN Reason: Keep Vein Open Sodium Chloride (Saline Flush) 2.5 ml FLUSH ASDIRECTED PRN PRN Reason: Keep Vein Open Sodium Chloride (Normal Saline) 10 ml IV ASDIRECTED PRN PRN Reason: IV Use Sterile Water (Sterile Water For Irrigation) 1,000 ml IRR ASDIRECTED PRN PRN Reason: delivery Discontinued Medications Cefazolin Sodium/Dextrose (Ancef) Confirm Administered Dose 2 gm IV .STK-MED ONE Stop: 04/22/19 09:43 Ephedrine Sulfate (Ephedrine Sulfate) Confirm Administered Dose 50 mg .ROUTE .STK-MED ONE Stop: 04/22/19 09:36 Fentanyl (Sublimaze) Confirm Administered Dose 100 mcg .ROUTE .STK-MED ONE Stop: 04/22/19 09:35 Sodium Chloride (Normal Saline) Confirm Administered Dose 20 mls @ as directed .ROUTE .STK-MED ONE Stop: 04/22/19 09:39 Oxytocin/Sodium Chloride (Oxytocin 30 Unit/500 Ml-Ns) Confirm Administered Dose 30 unit in 500 mls @ as directed .ROUTE .STK-MED ONE Stop: 04/22/19 09:39 Sodium Chloride (Normal Saline) Confirm Administered Dose 20 mls @ as directed .ROUTE .STK-MED ONE Stop: 04/22/19 09:40 Acetaminophen (Ofirmev) Confirm Administered Dose 100 mls @ as directed IV .STK- MED ONE Stop: 04/22/19 09:44 Acetaminophen (Ofirmev) Confirm Administered Dose 100 mls @ as directed IV .STK- MED ONE Stop: 04/22/19 09:45 Ketorolac Tromethamine (Toradol) Confirm Administered Dose 30 mg .ROUTE .STK- MED ONE Stop: 04/22/19 11:28 Last Admin: 04/22/19 11:28 Dose: 30 mg Morphine Sulfate (Duramorph Pf) Confirm Administered Dose 10 mg .ROUTE .STK-MED ONE Stop: 04/22/19 09:37 Octyl Cyanoacrylate (Dermabond Advance) Confirm Administered Dose 1 applic .ROUTE .STK-MED ONE Stop: 04/22/19 09:58 Ondansetron HCl (Zofran) Confirm Administered Dose 4 mg .ROUTE .STK-MED ONE Stop: 04/22/19 09:35 Phenylephrine HCl (Phenylephrine In Ns 100 Mcg/Ml) Confirm Administered Dose 1 mg .ROUTE .STK-MED ONE Stop: 04/22/19 09:36 Propofol (Diprivan 20 Ml) Confirm Administered Dose 200 mg .ROUTE .STK-MED ONE Stop: 04/22/19 09:35
[2019-04-22] MEDS ORDERED: Bisacodyl 10 MG Supp RECTAL PRN (12:08)
[2019-04-22] MEDS ORDERED: Aluminum Hydroxide/Magnesium Hydroxide/Simethicone Susp 30 ML Cup PO PRN (12:08)
[2019-04-22] MEDS ORDERED: Lanolin 100% Cream 7 GM Tube TOP PRN (12:08)
--- NOTE | 2019-04-22 12:51 | PCM.OPNOTE ---
- General Post-Op/Procedure Note Date of Surgery/Procedure: 04/22/19 Operative Procedure(s): Primary LTCS Findings: Viable male APGARs 9, 9 weight 8 pounds 4 oz, delivery intact placenta with 3V cord Pre Op Diagnosis: 38/5 week IUP. SROM. Active genital herpes outbreak Post-Op Diagnosis: Same Anesthesia Technique: Spinal Primary Surgeon: Kate Garcia Machine Operator Packaging: Lissa Ernandez Pathology: Placenta to pathology Fluid Replacement, Intraop: 2,300 EBL in mLs: 400 Complications: none known Condition: Good Free Text/Narrative:: Intake & Output 04/21/19 04/22/19 04/22/19 22:59 06:59 14:59 Intake Total 2500 Output Total 200 Balance 2300 Dictation [id number]
--- NOTE | 2019-04-22 14:21 | OR ---
SURGEON: Kate Garcia M.D. DATE OF PROCEDURE: 04/22/2019 PREOPERATIVE DIAGNOSES: 1. 38-5/7 weeks' intrauterine . 2. Spontaneous rupture of membranes. 3. Active genital herpes outbreak. POSTOPERATIVE DIAGNOSES: 1. 38-5/7 weeks' intrauterine . 2. Spontaneous rupture of membranes. 3. Active genital herpes outbreak. PROCEDURE: Primary low-transverse section. PRIMARY SURGEON: Kate Garcia MD. ANESTHESIA: Spinal. ESTIMATED BLOOD LOSS: 400 mL. FLUIDS: 2300 mL of crystalloid. COMPLICATIONS: None known. FINDINGS: Viable male. scores 9 at 1 minute and 9 at 5 minutes. Weight 8 pounds 4 ounces. Delivery of intact placenta, 3-vessel cord. DISPOSITION: in nursery, mom in PACU. PROCEDURE DETAILS: Molly is a 23-year-old G2, P1, at 38-5/7 weeks' gestation, who presented on the morning of 04/22/2019 with spontaneous rupture of membranes. Clear fluid noted. Upon her admission, the patient was noted to be spontaneous rupture and 4 cm dilated. The patient has a history of a primary herpes outbreak in early . She has been on her Valtrex prophylactically. However, she noticed last night she started having a lesion on the clitoral cagle despite taking her Valtrex 500 mg b.i.d. Region was inspected under bright light, and she is found to have a somewhat vesicular lesion on the clitoral cagle. No other lesions are identified. While it does not have typical prodromal symptoms associated with it, given the fact that she does have a lesion, we had discussion and feel it is prudent to proceed with delivery at this juncture. Risks of procedure were discussed. Proper consent obtained. The patient was taken to the operating room where she underwent spinal anesthetic, was then placed in dorsal lithotomy position with leftward tilt. SCDs to lower extremities, Field to gravity, and was prepped and draped in the usual sterile fashion. Received Ancef prophylactically. Time-out was performed. Anesthesia was tested, found to be adequate. A Pfannenstiel was created, carried down to the level of the rectus fascia which was incised in midline, lateralized on either side sharply and bluntly. The superior aspect of fascia was tented upward, dissected sharply and bluntly away from underlying muscle. Similar aspect was performed with the inferior aspect of the fascia. Rectus muscle in midline. Peritoneum was tented upward and entered sharply. Rectus muscles and peritoneum were lateralized bluntly. Uterine position and position palpated. The bladder flap was created sharply and bluntly after introducing a self-retaining tractor. Bladder was mobilized away from the lower uterine segment. A low-transverse hysterotomy was now performed. Uterus was entered with blunt-end scalpel. Hysterotomy was lateralized bluntly. The 's head was flexed, delivered from the pelvis. The 's head was delivered followed by anterior shoulder, posterior shoulder, and remaining body without difficulty. The infant's oropharynx and nares were bulb suctioned. After delay, cord was clamped x2 and cut. was handed off to attending nursing staff. Cord arterial, cord venous, cord blood samples obtained. The placenta was now delivered spontaneously intact. Vigorous fundal uterine massage was then applied while the uterus was cleared of all clot and debris. Hysterotomy was repaired using 0 Vicryl in continuous running locked fashion followed by re-imbricating layer in continuous running fashion. The area of oozing along the left side was replicated with [id number] suture as well as another area of oozing along the right lateral side was also replicated with [id number] suture. Hemostasis thereafter evident. Posterior aspect of the uterus inspected. No defects or hematomas found be forming. The region was well irrigated, suction dried. The uterus returned to abdominal cavity. Colonic gutters were cleared of all clot and debris, well irrigated, suction dried. Areas of serosal oozing were now cauterized. Hemostasis appeared evident. Self-retaining retractor gently removed. Bladder blade was placed. Hysterotomy once again inspected and found to be hemostatic. Rectus muscles and peritoneum were reapproximated using inverted mattress suture technique with 0 Vicryl in running fashion. Anterior aspect of the muscle and posterior aspect of the fascia were closely inspected. Any areas of oozing were cauterized. The rectus fascia was reapproximated using 0 Vicryl beginning laterally on each side and meeting in the midline in continuous running fashion. Subcutaneous tissue was well irrigated, suction dried. Any areas of oozing were cauterized. The region once again well irrigated, suction dried. The skin edges were reapproximated using 3-0 Vicryl on a Carlos needle in a subcuticular fashion, re-imbricated with half-inch Steri-Strips, Mastisol. Sponge, instrument, and needle count was correct x2. The patient has tolerated the procedure well overall. She will go to PACU in stable condition. Placenta to pathology given the possible herpes outbreak. MIRELLA / FUAD /[id number] MTDConstantin
[2019-04-22] MEDS: Simethicone 80 MG Tab.Chew PO SCH ×2 (17:46→23:41)
[2019-04-22] MEDS: Ketorolac 30 MG/ML SDV IVPUSH SCH ×3 (17:46→23:40)
[2019-04-22] MEDS: Docusate Sodium 100 MG Cap PO SCH (21:15)
[2019-04-23] MEDS: Ketorolac 30 MG/ML SDV IVPUSH SCH ×2 (05:26→11:41)
[2019-04-23] MEDS: Simethicone 80 MG Tab.Chew PO SCH ×3 (05:26→18:23)
[2019-04-23] MEDS: Docusate Sodium 100 MG Cap PO SCH ×2 (08:32→21:13)
[2019-04-23] MEDS: Acetaminophen/oxyCODONE 325-5 MG Tab PO PRN ×2 (15:01→19:26)
--- NOTE | 2019-04-23 18:01 | PCM.PN ---
- General Info Date of Service: 04/23/19 (PPD#1 Primary LTCS re: ROM and active herpes outbreak.) Functional Status: Reports: Pain Controlled - Review of Systems General: Reports: No Symptoms - Patient Data Vitals - Most Recent: Last Vital Signs Temp 36.6 C 04/23/19 08:00 Pulse 84 04/23/19 08:00 Resp 16 04/23/19 09:00 BP 107/54 L 04/23/19 08:00 Pulse Ox 97 04/23/19 09:00 Weight - Most Recent: 70.307 kg I&O - Last 24 Hours: Intake & Output 04/23/19 04/23/19 04/23/19 06:59 14:59 22:59 Intake Total 2535 2 Output Total 650 Balance 1885 2 Lab Results Last 24 Hours: Laboratory Results - last 24 hr 04/22/19 04/23/19 Range/Units 12:16 05:27 Hgb 8.4 L (12.0-16.0) g/dL Hct 26.8 L (36.0-46.0) % Screen NEGATIVE (NEGATIVE) RhIG Candidate? YES Rhogam Indicated YES, BABY RH POS H Med Orders - Current: Current Medications Al Hydroxide/Mg Hydroxide (Mag-Al Plus) 30 ml PO Q8H PRN PRN Reason: Heartburn Bisacodyl (Dulcolax) 10 mg RECTAL ONETIME PRN PRN Reason: Constipation Butorphanol Tartrate (Stadol) 1 mg IVPUSH Q1H PRN PRN Reason: Pain Carboprost Tromethamine (Hemabate Ds) 250 mcg IM ASDIRECTED PRN PRN Reason: Post Hemorrhage Diphenhydramine HCl (Benadryl) 25 mg IVPUSH Q6H PRN PRN Reason: Itching or Nausea Docusate Sodium (Colace) 100 mg PO BID DAVID Last Admin: 04/23/19 08:32 Dose: 100 mg Emollient Ointment (Lansinoh Hpa) 0 gm TOP ASDIRECTED PRN PRN Reason: Sore Nipples Fentanyl (Sublimaze) 50 mcg IVPUSH Q1H PRN PRN Reason: Pain (severe 7-10) Tranexamic Acid 1,000 mg/ (Sodium Chloride) 110 mls @ 660 mls/hr IV ONETIME PRN PRN Reason: Bleeding Oxytocin/Sodium Chloride (Oxytocin 30 Unit/500 Ml-Ns) 30 unit in 500 mls @ 999 mls/hr IV [facility]RATE [facility] Lactated Ringer's (Ringers, Lactated) 1,000 mls @ 125 mls/hr IV ASDIRECTED [facility] Last Admin: 04/22/19 18:50 Dose: 125 mls/hr Ibuprofen (Motrin) 800 mg PO Q8H PRN PRN Reason: mild pain or fever Methylergonovine Maleate (Methergine) 0.2 mg IM ASDIRECTED PRN PRN Reason: Post Hemorrhage Nalbuphine HCl (Nubain) 10 mg IVPUSH Q1H PRN PRN Reason: Pain (severe 7-10) Nalbuphine HCl (Nubain) 5 mg IVPUSH ASDIRECTED PRN PRN Reason: Itching Last Admin: 04/22/19 23:05 Dose: 5 mg Ondansetron HCl (Zofran) 4 mg IVPUSH Q6H PRN PRN Reason: Nausea Ondansetron HCl (Zofran) 4 mg IVPUSH Q4H PRN PRN Reason: Nausea/Vomiting Oxycodone/Acetaminophen (Percocet 325-5 Mg) 1 tab PO Q4H PRN PRN Reason: Pain (moderate 4-6) Oxycodone/Acetaminophen (Percocet 325-5 Mg) 2 tab PO Q4H PRN PRN Reason: Pain (moderate 4-6) Last Admin: 04/23/19 15:01 Dose: 2 tab Simethicone (Simethicone) 160 mg PO QID [facility] Last Admin: 04/23/19 11:42 Dose: 160 mg Sodium Chloride (Saline Flush) 10 ml FLUSH ASDIRECTED PRN PRN Reason: Keep Vein Open Sodium Chloride (Saline Flush) 2.5 ml FLUSH ASDIRECTED PRN PRN Reason: Keep Vein Open Sodium Chloride (Normal Saline) 10 ml IV ASDIRECTED PRN PRN Reason: IV Use Sterile Water (Sterile Water For Irrigation) 1,000 ml IRR ASDIRECTED PRN PRN Reason: delivery Discontinued Medications Cefazolin Sodium/Dextrose (Ancef) Confirm Administered Dose 2 gm IV .STK-MED ONE Stop: 04/22/19 09:43 Last Admin: 04/22/19 20:26 Dose: Not Given Diphenhydramine HCl (Benadryl) 25 mg IVPUSH Q4H PRN PRN Reason: Itching Stop: 04/23/19 11:13 Last Admin: 04/22/19 12:28 Dose: 25 mg Ephedrine Sulfate (Ephedrine Sulfate) Confirm Administered Dose 50 mg .ROUTE .STK-MED ONE Stop: 04/22/19 09:36 Fentanyl (Sublimaze) Confirm Administered Dose 100 mcg .ROUTE .STK-MED ONE Stop: 04/22/19 09:35 Lactated Ringer's (Ringers, Lactated) 1,000 mls @ 150 mls/hr IV ASDIRECTED [facility] Last Admin: 04/22/19 09:04 Dose: 150 mls/hr Sodium Chloride (Normal Saline) Confirm Administered Dose 20 mls @ as directed .ROUTE .STK-MED ONE Stop: 04/22/19 09:39 Oxytocin/Sodium Chloride (Oxytocin 30 Unit/500 Ml-Ns) Confirm Administered Dose 30 unit in 500 mls @ as directed .ROUTE .STK-MED ONE Stop: 04/22/19 09:39 Sodium Chloride (Normal Saline) Confirm Administered Dose 20 mls @ as directed .ROUTE .STK-MED ONE Stop: 04/22/19 09:40 Acetaminophen (Ofirmev) Confirm Administered Dose 100 mls @ as directed IV .STK- MED ONE Stop: 04/22/19 09:44 Last Admin: 04/22/19 20:26 Dose: Not Given Acetaminophen (Ofirmev) Confirm Administered Dose 100 mls @ as directed IV .STK- MED ONE Stop: 04/22/19 09:45 Last Admin: 04/22/19 20:27 Dose: Not Given Ketorolac Tromethamine (Toradol) Confirm Administered Dose 30 mg .ROUTE .STK- MED ONE Stop: 04/22/19 11:28 Last Admin: 04/22/19 11:28 Dose: 30 mg Ketorolac Tromethamine (Toradol) 30 mg IVPUSH Q6H [facility] Stop: 04/23/19 11:31 Last Admin: 04/23/19 11:41 Dose: 30 mg Lidocaine HCl (Xylocaine 1%) 50 ml INJECT ONETIME PRN PRN Reason: Laceration repair Misoprostol (Cytotec) 200 mcg PO ONETIME PRN PRN Reason: Post Hemorrhage Morphine Sulfate (Duramorph Pf) Confirm Administered Dose 10 mg .ROUTE .STK-MED ONE Stop: 04/22/19 09:37 Naloxone HCl (Narcan) 0.1 mg IVPUSH ONETIME PRN PRN Reason: Respiratory Depression Stop: 04/23/19 11:13 Octyl Cyanoacrylate (Dermabond Advance) Confirm Administered Dose 1 applic .ROUTE .STK-MED ONE Stop: 04/22/19 09:58 Last Admin: 04/22/19 20:27 Dose: Not Given Ondansetron HCl (Zofran) 4 mg IV Q4H PRN PRN Reason: Nausea/Vomiting Ondansetron HCl (Zofran) Confirm Administered Dose 4 mg .ROUTE .STK-MED ONE Stop: 04/22/19 09:35 Oxycodone/Acetaminophen (Percocet 325-5 Mg) 2 tab PO Q6H PRN PRN Reason: Pain (moderate 4-6) Phenylephrine HCl (Phenylephrine In Ns 100 Mcg/Ml) Confirm Administered Dose 1 mg .ROUTE .STK-MED ONE Stop: 04/22/19 09:36 Propofol (Diprivan 20 Ml) Confirm Administered Dose 200 mg .ROUTE .STK-MED ONE Stop: 04/22/19 09:35 - Exam General: Alert, Oriented, Cooperative, No Acute Distress Neck: Supple Lungs: Other (Breathing comfortably, and deep breath without difficulty) GI/Abdominal Exam: Soft, Other (Uterus firm below umb. Incision healthy in appearance.) Back Exam: Normal Inspection, Other (No pain with palpation of calves/thighs) - Problem List & Annotations (1) delivery delivered SNOMED Code(s): 668833207 Code(s): O82 - ENCOUNTER FOR DELIVERY WITHOUT INDICATION Status: Acute Current Visit: Yes - Problem List Review Problem List Initiated/Reviewed/Updated: Yes - Assessment Assessment:: PPD#1. Doing well. Hgb 8.4. D/w pt. Asymptomatic. - Plan Plan:: Continue Post-op cares.
--- NOTE | 2019-04-23 18:29 | PCM48HPAN ---
Post Anesthesia Note - EVALUATION WITHIN 48HRS OF ANESTHETIC Vital Signs in Normal Range: Yes Patient Participated in Evaluation: Yes Respiratory Function Stable: Yes Airway Patent: Yes Cardiovascular Function Stable: Yes Hydration Status Stable: Yes Pain Control Satisfactory: Yes Nausea and Vomiting Control Satisfactory: Yes Mental Status Recovered: Yes Pulse Rate: 77 Resp Rate: 16 Temperature: 36.2 C Blood Pressure: 111/61
[2019-04-23] MEDS: Ibuprofen 800 MG Tab PO PRN (23:57)
[2019-04-24] MEDS: Acetaminophen/oxyCODONE 325-5 MG Tab PO PRN ×2 (01:57→07:37)
[2019-04-24] MEDS: Simethicone 80 MG Tab.Chew PO SCH ×2 (01:57→06:53)
--- NOTE | 2019-04-24 07:53 | PCM.PNPP ---
- General Info Date of Service: 04/24/19 Functional Status: Reports: Pain Controlled, Tolerating Diet, Ambulating, Urinating - Review of Systems General: Denies: Fever, Weakness, Fatigue Pulmonary: Denies: Shortness of Breath Cardiovascular: Denies: Chest Pain, Palpitations, Lightheadedness Gastrointestinal: Reports: Flatus. Denies: Abdominal Pain, Nausea, Vomiting Genitourinary: Denies: Flank Pain Musculoskeletal: Reports: No Symptoms Skin: Reports: No Symptoms Neurological: Reports: No Symptoms Psychiatric: Reports: No Symptoms - General Info Date of Service: 04/24/19 - Patient Data Vital Signs - Most Recent: Last Vital Signs Temp 36.4 C 04/24/19 04:39 Pulse 87 04/24/19 04:39 Resp 16 04/24/19 04:39 BP 114/55 L 04/24/19 04:39 Pulse Ox 98 04/24/19 04:39 Weight - Most Recent: 70.307 kg Lab Results - Last 24 Hours: Laboratory Results - last 24 hr 04/22/19 Range/Units 12:16 Screen NEGATIVE (NEGATIVE) RhIG Candidate? YES Rhogam Indicated YES, BABY RH POS H Med Orders - Current: Current Medications Al Hydroxide/Mg Hydroxide (Mag-Al Plus) 30 ml PO Q8H PRN PRN Reason: Heartburn Bisacodyl (Dulcolax) 10 mg RECTAL ONETIME PRN PRN Reason: Constipation Butorphanol Tartrate (Stadol) 1 mg IVPUSH Q1H PRN PRN Reason: Pain Carboprost Tromethamine (Hemabate Ds) 250 mcg IM ASDIRECTED PRN PRN Reason: Post Hemorrhage Diphenhydramine HCl (Benadryl) 25 mg IVPUSH Q6H PRN PRN Reason: Itching or Nausea Docusate Sodium (Colace) 100 mg PO BID DAVID Last Admin: 04/23/19 21:13 Dose: 100 mg Emollient Ointment (Lansinoh Hpa) 0 gm TOP ASDIRECTED PRN PRN Reason: Sore Nipples Fentanyl (Sublimaze) 50 mcg IVPUSH Q1H PRN PRN Reason: Pain (severe 7-10) Tranexamic Acid 1,000 mg/ (Sodium Chloride) 110 mls @ 660 mls/hr IV ONETIME PRN PRN Reason: Bleeding Oxytocin/Sodium Chloride (Oxytocin 30 Unit/500 Ml-Ns) 30 unit in 500 mls @ 999 mls/hr IV TITRATE [facility] Lactated Ringer's (Ringers, Lactated) 1,000 mls @ 125 mls/hr IV ASDIRECTED [facility] Last Admin: 04/22/19 18:50 Dose: 125 mls/hr Ibuprofen (Motrin) 800 mg PO Q8H PRN PRN Reason: mild pain or fever Last Admin: 04/23/19 23:57 Dose: 800 mg Methylergonovine Maleate (Methergine) 0.2 mg IM ASDIRECTED PRN PRN Reason: Post Hemorrhage Nalbuphine HCl (Nubain) 10 mg IVPUSH Q1H PRN PRN Reason: Pain (severe 7-10) Nalbuphine HCl (Nubain) 5 mg IVPUSH ASDIRECTED PRN PRN Reason: Itching Last Admin: 04/22/19 23:05 Dose: 5 mg Ondansetron HCl (Zofran) 4 mg IVPUSH Q6H PRN PRN Reason: Nausea Ondansetron HCl (Zofran) 4 mg IVPUSH Q4H PRN PRN Reason: Nausea/Vomiting Oxycodone/Acetaminophen (Percocet 325-5 Mg) 1 tab PO Q4H PRN PRN Reason: Pain (moderate 4-6) Oxycodone/Acetaminophen (Percocet 325-5 Mg) 2 tab PO Q4H PRN PRN Reason: Pain (moderate 4-6) Last Admin: 04/24/19 07:37 Dose: 2 tab Simethicone (Simethicone) 160 mg PO QID [facility] Last Admin: 04/24/19 06:53 Dose: 160 mg Sodium Chloride (Saline Flush) 10 ml FLUSH ASDIRECTED PRN PRN Reason: Keep Vein Open Sodium Chloride (Saline Flush) 2.5 ml FLUSH ASDIRECTED PRN PRN Reason: Keep Vein Open Sodium Chloride (Normal Saline) 10 ml IV ASDIRECTED PRN PRN Reason: IV Use Sterile Water (Sterile Water For Irrigation) 1,000 ml IRR ASDIRECTED PRN PRN Reason: delivery Discontinued Medications Cefazolin Sodium/Dextrose (Ancef) Confirm Administered Dose 2 gm IV .ST-MED ONE Stop: 04/22/19 09:43 Last Admin: 04/22/19 20:26 Dose: Not Given Diphenhydramine HCl (Benadryl) 25 mg IVPUSH Q4H PRN PRN Reason: Itching Stop: 04/23/19 11:13 Last Admin: 04/22/19 12:28 Dose: 25 mg Ephedrine Sulfate (Ephedrine Sulfate) Confirm Administered Dose 50 mg .ROUTE .STK-MED ONE Stop: 04/22/19 09:36 Fentanyl (Sublimaze) Confirm Administered Dose 100 mcg .ROUTE .STK-MED ONE Stop: 04/22/19 09:35 Lactated Ringer's (Ringers, Lactated) 1,000 mls @ 150 mls/hr IV ASDIRECTED [facility] Last Admin: 04/22/19 09:04 Dose: 150 mls/hr Sodium Chloride (Normal Saline) Confirm Administered Dose 20 mls @ as directed .ROUTE .STK-MED ONE Stop: 04/22/19 09:39 Oxytocin/Sodium Chloride (Oxytocin 30 Unit/500 Ml-Ns) Confirm Administered Dose 30 unit in 500 mls @ as directed .ROUTE .STK-MED ONE Stop: 04/22/19 09:39 Sodium Chloride (Normal Saline) Confirm Administered Dose 20 mls @ as directed .ROUTE .STK-MED ONE Stop: 04/22/19 09:40 Acetaminophen (Ofirmev) Confirm Administered Dose 100 mls @ as directed IV .STK- MED ONE Stop: 04/22/19 09:44 Last Admin: 04/22/19 20:26 Dose: Not Given Acetaminophen (Ofirmev) Confirm Administered Dose 100 mls @ as directed IV .STK- MED ONE Stop: 04/22/19 09:45 Last Admin: 04/22/19 20:27 Dose: Not Given Ketorolac Tromethamine (Toradol) Confirm Administered Dose 30 mg .ROUTE .STK- MED ONE Stop: 04/22/19 11:28 Last Admin: 04/22/19 11:28 Dose: 30 mg Ketorolac Tromethamine (Toradol) 30 mg IVPUSH Q6H [facility] Stop: 04/23/19 11:31 Last Admin: 04/23/19 11:41 Dose: 30 mg Lidocaine HCl (Xylocaine 1%) 50 ml INJECT ONETIME PRN PRN Reason: Laceration repair Misoprostol (Cytotec) 200 mcg PO ONETIME PRN PRN Reason: Post Hemorrhage Morphine Sulfate (Duramorph Pf) Confirm Administered Dose 10 mg .ROUTE .STK-MED ONE Stop: 04/22/19 09:37 Naloxone HCl (Narcan) 0.1 mg IVPUSH ONETIME PRN PRN Reason: Respiratory Depression Stop: 04/23/19 11:13 Octyl Cyanoacrylate (Dermabond Advance) Confirm Administered Dose 1 applic .ROUTE .STK-MED ONE Stop: 04/22/19 09:58 Last Admin: 04/22/19 20:27 Dose: Not Given Ondansetron HCl (Zofran) 4 mg IV Q4H PRN PRN Reason: Nausea/Vomiting Ondansetron HCl (Zofran) Confirm Administered Dose 4 mg .ROUTE .STK-MED ONE Stop: 04/22/19 09:35 Oxycodone/Acetaminophen (Percocet 325-5 Mg) 2 tab PO Q6H PRN PRN Reason: Pain (moderate 4-6) Phenylephrine HCl (Phenylephrine In Ns 100 Mcg/Ml) Confirm Administered Dose 1 mg .ROUTE .STK-MED ONE Stop: 04/22/19 09:36 Propofol (Diprivan 20 Ml) Confirm Administered Dose 200 mg .ROUTE .STK-MED ONE Stop: 04/22/19 09:35 - Interaction Infant Disposition, : in Room with Family Support Person: Significant Other - Recovery Exam Fundal Tone: Firm Fundal Level: 1 Fingerbreadths Below Umbilicus Fundal Placement: Midline Lochia Amount: Scant Lochia Color: Rubra/Red Perineum Description: Intact, Minimal Bruising/Swelling Episiotomy/Laceration: None Bladder Status: Nonpalpable Urinary Elimination: Indwelling Catheter - Exam General: Alert, Oriented Lungs: Normal Respiratory Effort Cardiovascular: Regular Rate, Regular Rhythm GI/Abdominal Exam: Normal Bowel Sounds, Soft Extremities: Pedal Edema (trace). No: Trent's Sign Skin: Warm, Dry, Intact Wound/Incisions: Healing Well, No Drainage. No: Erythema Neurological: No New Focal Deficit Psy/Mental Status: Alert, Normal Affect, Normal Mood - Problem List & Annotations (1) delivery delivered SNOMED Code(s): 788880866 Code(s): O82 - ENCOUNTER FOR DELIVERY WITHOUT INDICATION Status: Acute Current Visit: Yes - Problem List Review Problem List Initiated/Reviewed/Updated: Yes - My Orders Last 24 Hours: My Active Orders 04/23/19 17:30 Ibuprofen [Motrin] 800 mg PO Q8H PRN 04/24/19 07:50 Ready for Discharge [RC] PER UNIT ROUTINE - Assessment Assessment:: PPD#2. Doing well. . - Plan Plan:: Patient is doing well overall--discharge to home today. Discharge instructions reviewed. Infection and bleeding warnings reviewed. Follow up at [facility] 2 and 6 weeks. Continue valtrex bid for 7 days, then once daily. Continue PNV daily.
[2019-04-24 07:55] VITALS: BP 109/68
[2019-04-24] MEDS: Ibuprofen 800 MG Tab PO PRN (10:39)
[2019-04-24] MEDS: Docusate Sodium 100 MG Cap PO SCH (10:39)
== END 2019-04-24 11:15 | disposition home or self-care (01) | DRG 788 ==
LOC: MW.OBCHECK 05:32 → MW.OB 05:33 → MW.OBCHECK 06:04 → OBSVTOIN 10:29 → MW.OB 16:25
PROVIDERS: ADMIT Obstetrics & Gynecology; ATTEND Obstetrics & Gynecology
PROC: 10D00Z1 Extraction of Products of Conception, Low, Open Approach (ICD-10-PCS; principal; 2019-03-22)
DX: O98.52 Other viral diseases complicating childbirth (principal); Z3A.38 38 weeks gestation of pregnancy; Z37.0 Single live birth; B00.9 Herpesviral infection, unspecified
CPT/HCPCS: 36415; 59025; 82803; 84112; 85014; 85018; 85027; 85460; 86850; 86900; 86901; 88305; A9270-GY; J1200; J1885; J2270; J2300; J2370; J2405; J2590; J2704; J2792; J3010; J7120

== ENCOUNTER 2021-04-13 05:22 | Inpatient (IN) | payer BC ==
[2021-04-13] MEDS ORDERED: Sodium Chloride 0.9% 10 ML SDV IV PRN (05:30)
[2021-04-13] MEDS ORDERED: Oxytocin/0.9 % Sodium Chloride 30 UNIT/500 ML BAG IV SCH (05:30)
[2021-04-13] MEDS ORDERED: Water For Irrigation,Sterile 1,000 ML Container IRR PRN (05:30)
[2021-04-13] MEDS ORDERED: Nalbuphine 10 MG/1 ML Vial IVPUSH PRN ×2 (05:30→07:29)
[2021-04-13] MEDS ORDERED: Tranexamic Acid 1,000 MG in Sodium Chloride 0.9% 100 ML IV PRN (05:30)
[2021-04-13] MEDS ORDERED: Citric Acid/Sodium Citrate Solution 30 ML Cup PO ONE (05:30)
[2021-04-13] MEDS ORDERED: Carboprost Tromethamine 250 MCG/1 ML Amp IM PRN (05:30)
[2021-04-13] MEDS ORDERED: Butorphanol 1 MG/ML SDV IVPUSH PRN (05:30)
[2021-04-13] MEDS ORDERED: Lactated Ringers 1,000 ML IV SCH ×3 (05:30→09:00)
[2021-04-13] MEDS ORDERED: Lidocaine 1% 50 ML MDV INJECT PRN (05:30)
[2021-04-13] MEDS ORDERED: Misoprostol 200 MCG Tab PO PRN (05:30)
[2021-04-13] MEDS ORDERED: Methylergonovine 0.2 MG/1 ML Amp IM PRN (05:30)
[2021-04-13] MEDS ORDERED: Ondansetron 4 MG/2 ML SDV IVPUSH ONE (06:00)
--- NOTE | 2021-04-13 07:15 | PCM.PREANE ---
Preanesthetic Assessment - Anesthesia/Transfusion/Family Hx Anesthesia History: Prior Anesthesia Without Reaction Family History of Anesthesia Reaction: No Transfusion History: No Prior Transfusion(s) - Physical Assessment NPO Status Date: 04/12/21 NPO Status Time: 00:00 Height: 5 ft 1.81 in Weight: 71.214 kg ASA Class: 2 Mental Status: Alert & Oriented x3 Dentition: Reports: Normal Dentition ROM/Head Extension: Full Lungs: Clear to Auscultation Cardiovascular: Regular Rate - Lab Values: Laboratory Last Values WBC 7.88 K/uL (4.0-11.0) 04/13/21 06:04 RBC 3.88 M/uL (4.30-5.90) L 04/13/21 06:04 Hgb 10.5 g/dL (12.0-16.0) L 04/13/21 06:04 Hct 32.9 % (36.0-46.0) L 04/13/21 06:04 MCV 84.8 fL (80.0-98.0) 04/13/21 06:04 MCH 27.1 pg (27.0-32.0) 04/13/21 06:04 MCHC 31.9 g/dL (31.0-37.0) 04/13/21 06:04 RDW Std Deviation 49.6 fl (28.0-62.0) 04/13/21 06:04 RDW Coeff of Lenka 16 % (11.0-15.0) H 04/13/21 06:04 Plt Count 228 K/uL (150-400) 04/13/21 06:04 MPV 11.50 fL (7.40-12.00) 04/13/21 06:04 Nucleated RBC % 0.0 /100WBC 04/13/21 06:04 Nucleated RBCs # 0 K/uL 04/13/21 06:04 SARS-CoV-2 RNA (ANNETTA) NEGATIVE (NEGATIVE) 04/13/21 05:29 - Allergies Allergies/Adverse Reactions: Allergies Allergy/AdvReac Type Severity Reaction Status Date / Time No Known Allergies Allergy Verified 04/07/21 07:18 - Blood Product(s) Available: None - Anesthesia Plan Pre-Op Medication Ordered: None - Acknowledgements Anesthesia Type Planned: Spinal Pt an Appropriate Candidate for the Planned Anesthesia: Yes Alternatives and Risks of Anesthesia Discussed w Pt/Guardian: Yes Pt/Guardian Understands and Agrees with Anesthesia Plan: Yes PreAnesthesia Questionnaire HEENT History: Reports: None Cardiovascular History: Reports: None Respiratory History: Reports: None Gastrointestinal History: Reports: Other (See Below) Other Gastrointestinal History: occasional heartburn with Genitourinary History: Reports: None, [employer]GER ANIMATION History: Reports: Musculoskeletal History: Reports: None Neurological History: Reports: Other (See Below) Other Neuro History: "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 was 22 years old" Psychiatric History: Reports: Anxiety Endocrine/Metabolic History: Reports: None Hematologic History: Reports: None Immunologic History: Reports: None Oncologic (Cancer) History: Reports: None Dermatologic History: Reports: None - Infectious Disease History Infectious Disease History: Reports: Chicken Pox, Shingles - Past Surgical History Head Surgeries/Procedures: Reports: None HEENT Surgical History: Reports: Adenoidectomy, Tonsillectomy Cardiovascular Surgical History: Reports: None Respiratory Surgical History: Reports: None GI Surgical History: Reports: None Female Surgical History: Reports: Section Endocrine Surgical History: Reports: None Neurological Surgical History: Reports: None Musculoskeletal Surgical History: Reports: None Oncologic Surgical History: Reports: None Dermatological Surgical History: Reports: None - SUBSTANCE USE Tobacco Use Status *Q: Never Tobacco User Tobacco Use Within Last Twelve Months: No Second Hand Smoke Exposure: No Recreational Drug Use History: No - HOME MEDS Home Medications: Home Meds Vits #93/Iron Fum/FA [ Formula Tablet] 1 each PO DAILY 03/27/19 [History] valACYclovir HCl [Valtrex] 500 mg PO DAILY 03/27/19 [History] Iron 45 mg PO DAILY 04/07/21 [History] - CURRENT (IN HOUSE) MEDS Current Meds: Current Medications Butorphanol Tartrate (Butorphanol 1 Mg/Ml Sdv) 1 mg IVPUSH Q1H PRN PRN Reason: Pain (severe 7-10) Carboprost Tromethamine (Carboprost Tromethamine 250 Mcg/1 Ml Amp) 250 mcg IM ASDIRECTED PRN PRN Reason: Post Hemorrhage Oxytocin/Sodium Chloride (Oxytocin 30 Unit/500 Ml-Ns) 30 unit in 500 mls @ 999 mls/hr IV TITRATE DAVID Tranexamic Acid 1,000 mg/ (Sodium Chloride) 110 mls @ 660 mls/hr IV ONETIME PRN PRN Reason: Bleeding Lactated Ringer's (Ringers, Lactated) 1,000 mls @ 500 mls/hr IV [facility] Last Admin: 04/13/21 06:00 Dose: 500 mls/hr Documented by: Ampicillin Sodium 1 gm/ Sodium (Chloride) 50 mls @ 100 mls/hr IV Q4H DAVID Lactated Ringer's (Ringers, Lactated) 1,000 mls @ 150 mls/hr IV ASDIRECTED DAVID Lidocaine HCl (Lidocaine 1% 50 Ml Mdv) 50 ml INJECT ONETIME PRN PRN Reason: Laceration repair Methylergonovine Maleate (Methylergonovine 0.2 Mg/1 Ml Amp) 0.2 mg IM ASDIRECTED PRN PRN Reason: Post Hemorrhage Misoprostol (Misoprostol 200 Mcg Tab) 200 mcg PO ONETIME PRN PRN Reason: Post Hemorrhage Nalbuphine HCl (Nalbuphine 10 Mg/1 Ml Vial) 10 mg IVPUSH Q1H PRN PRN Reason: Pain (severe 7-10) Sodium Chloride (Sodium Chloride 0.9% 10 Ml Sdv) 10 ml IV ASDIRECTED PRN PRN Reason: IV Use Sterile Water (Water For Irrigation,Sterile 1,000 Ml Container) 1,000 ml IRR ASDIRECTED PRN PRN Reason: delivery Discontinued Medications Citric Acid/Sodium Citrate (Citric Acid/Sodium Citrate Solution 30 Ml Cup) 30 ml PO ONETIME ONE Stop: 04/13/21 05:31 Ondansetron HCl (Ondansetron 4 Mg/2 Ml Sdv) 4 mg IVPUSH ONETIME ONE Stop: 04/13/21 06:01
[2021-04-13] MEDS ORDERED: Morphine PF 10 MG/10 ML SDV ONE (07:17)
[2021-04-13] MEDS ORDERED: fentaNYL 100 MCG/2 ML SDV ONE (07:18)
[2021-04-13] MEDS ORDERED: ePHEDrine 50 MG/ML SDV ONE (07:19)
[2021-04-13] MEDS ORDERED: Ketorolac 30 MG/ML SDV ONE (07:19)
[2021-04-13] MEDS ORDERED: Ondansetron 4 MG/2 ML SDV ONE (07:19)
[2021-04-13] MEDS ORDERED: Oxytocin 10 Units/1 ML SDV ONE ×2 (07:19→08:47)
[2021-04-13] MEDS ORDERED: diphenhydrAMINE 50 MG/ML SDV IVPUSH PRN (08:54)
[2021-04-13] MEDS ORDERED: Lanolin 100% Cream 7 GM Tube TOP PRN (08:54)
[2021-04-13] MEDS ORDERED: Oxytocin 10 Units/1 ML SDV IM PRN (08:54)
[2021-04-13] MEDS ORDERED: Ondansetron 4 MG/2 ML SDV IVPUSH PRN (08:54)
[2021-04-13] MEDS ORDERED: Ibuprofen 800 MG Tab PO PRN (08:54)
[2021-04-13] MEDS ORDERED: Acetaminophen/oxyCODONE 325-5 MG Tab PO PRN (08:54)
[2021-04-13] MEDS ORDERED: Bisacodyl 10 MG Supp RECTAL PRN (08:54)
--- NOTE | 2021-04-13 08:54 | PCM.OPNOTE ---
- General Post-Op/Procedure Note Date of Surgery/Procedure: 04/13/21 Operative Procedure(s): Repeat LTCS Findings: Viable male APGARs 9, 9 weight 7 lb 7 oz Intact placenta with 3V cord Pre Op Diagnosis: 39 week IUP. Previous csection, desires repeat Post-Op Diagnosis: Same Anesthesia Technique: Spinal Primary Surgeon: Kate Garcia Fluid Replacement, Intraop: 1,000 EBL in mLs: 500 Complications: none known Condition: Stable Free Text/Narrative:: Dictation [id number]
--- NOTE | 2021-04-13 09:50 | PCM48HPAN ---
Post Anesthesia Note - EVALUATION WITHIN 48HRS OF ANESTHETIC Vital Signs in Normal Range: Yes Patient Participated in Evaluation: Yes Respiratory Function Stable: Yes Airway Patent: Yes Cardiovascular Function Stable: Yes Hydration Status Stable: Yes Pain Control Satisfactory: Yes Nausea and Vomiting Control Satisfactory: Yes Mental Status Recovered: Yes - COMMENTS/OBSERVATIONS Free Text/Narrative:: PT VSS. Spinal wearing off. Alert and oriented no concerns noted.
[2021-04-13] MEDS: Ketorolac 30 MG/ML SDV IVPUSH SCH ×3 (10:59→20:06)
[2021-04-13] MEDS: Docusate Sodium 100 MG Cap PO SCH ×2 (10:59→20:06)
[2021-04-13] MEDS: Ampicillin 1 GM in Sodium Chloride 0.9% 50 ML IV SCH (11:00)
[2021-04-13] MEDS: Simethicone 80 MG Tab.Chew PO SCH ×2 (13:17→17:52)
--- NOTE | 2021-04-13 14:02 | OR ---
SURGEON: Kate Garcia M.D. DATE OF PROCEDURE: 04/13/2021 PREOPERATIVE DIAGNOSES: 1. A 39-week intrauterine . 2. Previous section, desires repeat. POSTOPERATIVE DIAGNOSES: 1. A 39-week intrauterine . 2. Previous section, desires repeat. PROCEDURE: Repeat low transverse section. PRIMARY SURGEON: Kate Garcia M.D. ANESTHESIA: Spinal. ESTIMATED BLOOD LOSS: 500 mL. FLUIDS: 1000 mL of crystalloid. COMPLICATIONS: None known. FINDINGS: Viable male. scores of 9 at one minute and 9 at five minutes. Weight of 7 pounds 7 ounces. Upon delivery, intact placenta, 3-vessel cord. DISPOSITION: to nursery. Mom to PACU, stable. PROCEDURE DETAILS: Molly is a 25-year-old female who presents today for scheduled repeat delivery. Risks of procedure have been discussed. Proper consent was obtained. The patient was taken to the operating room where she underwent spinal anesthetic, was placed in dorsal supine position with leftward tilt. SCDs to lower extremities. Field to gravity. She was prepped and draped in usual sterile fashion. Received Ancef prophylactically. Time-out was performed. Anesthesia was tested, found to be adequate. Previous Pfannenstiel scar was now excised. Subcutaneous tissue was incised down to the level of the rectus fascia, which was incised in midline, lateralized on either sides sharply and bluntly. Superior aspect of fascia tented upward, dissected sharply and bluntly from underlying muscles. In a similar aspect, this was performed with the inferior aspect of fascia. Rectus muscle was in the midline. Peritoneum was entered. Rectus muscles and peritoneum were now lateralized bluntly. Uterine position and position palpated. Self-retaining retractor was gently placed. Uterovesical reflection was visualized. Bladder flap was created bluntly. Bladder was mobilized away from lower uterine segment. Low transverse hysterotomy was now performed. Uterine cavity was entered bluntly with scalpel. Hysterotomy was lateralized bluntly. Amniotomy performed. Large amount of clear fluid was returned. The 's head was flexed. Fundal pressure applied. The head was delivered followed by anterior shoulder, posterior shoulder, and remainder of body without difficulty. Nuchal cord x2 was noted, reduced manually. The 's oropharynx and nares were bulb suctioned. Infant was crying vigorously. After a delay, cord was clamped x2 and cut. was handed off to attending nursery staff. Cord arterial, cord venous, and cord blood sampling were obtained. The placenta now delivered. Uterine cavity was cleared of all clot and debris. Hysterotomy repaired using 0 Vicryl in continuous running locked fashion followed by re-imbricating layer. Area of oozing in the midline was replicated with [id number] suture. Hemostasis thereafter evident. Posterior aspect of the uterus inspected. No defects or hematomas found be forming. Region was well irrigated, suction dried. Tubes and ovaries appeared normal. Uterus was returned to the abdominal cavity. Colonic gutters were cleared of all clot and debris, well irrigated and suction dried. The self-retaining retractor was now gently removed. The bladder blade was placed. Once again inspected hysterotomy, found to be hemostatic. Rectus muscles and peritoneum were now reapproximated using 0 Vicryl in inverted mattress suture technique. Anterior aspect of the muscle, posterior aspect of the fascia were closely inspected. Any areas of oozing were cauterized. The rectus fascia was now reapproximated using 0 Vicryl in continuous running fashion beginning laterally on either side and meeting in the midline. Subcutaneous tissue was well irrigated and suction dried. Any areas of oozing were cauterized. Skin was reapproximated using 3-0 Vicryl on a Carlos needle in subcuticular fashion. The incision was now re-imbricated with half inch Steri- Strips and Mastisol. Sponge, instrument, and needle counts were correct x2. The patient tolerated the procedure well overall. She will go to the PACU in stable condition. to nursery. MIRELLA / FUAD /[id number]
--- NOTE | 2021-04-13 15:19 | PCM48HPAN ---
Post Anesthesia Note - EVALUATION WITHIN 48HRS OF ANESTHETIC Vital Signs in Normal Range: Yes Patient Participated in Evaluation: Yes Respiratory Function Stable: Yes Airway Patent: Yes Cardiovascular Function Stable: Yes Hydration Status Stable: Yes Pain Control Satisfactory: Yes Nausea and Vomiting Control Satisfactory: Yes Mental Status Recovered: Yes Vital Signs: Last Vital Signs Temp 98.3 F 04/13/21 13:10 Pulse 75 04/13/21 15:00 Resp 16 04/13/21 15:00 BP 119/58 L 04/13/21 13:10 Pulse Ox 97 04/13/21 15:00 - COMMENTS/OBSERVATIONS Free Text/Narrative:: Pt up walking no concerns noted VSS
--- NOTE | 2021-04-13 15:19 | PCM.POSTAN ---
POST ANESTHESIA ASSESSMENT - MENTAL STATUS Mental Status: Alert - VITAL SIGNS Vital Signs: Last Vital Signs Temp 98.3 F 04/13/21 13:10 Pulse 75 04/13/21 15:00 Resp 16 04/13/21 15:00 BP 119/58 L 04/13/21 13:10 Pulse Ox 97 04/13/21 15:00 - RESPIRATORY Respiratory Status: Respiratory Rate WNL - CARDIOVASCULAR CV Status: Pulse Rate WNL - GASTROINTESTINAL GI Status: No Symptoms - POST OP HYDRATION Hydration Status: Adequate & Stable
[2021-04-14] MEDS: Simethicone 80 MG Tab.Chew PO SCH ×5 (00:25→23:37)
[2021-04-14] MEDS: Ketorolac 30 MG/ML SDV IVPUSH SCH ×2 (02:04→08:04)
--- NOTE | 2021-04-14 07:18 | PCM48HPAN ---
Post Anesthesia Note - EVALUATION WITHIN 48HRS OF ANESTHETIC Vital Signs in Normal Range: Yes Patient Participated in Evaluation: Yes Respiratory Function Stable: Yes Airway Patent: Yes Cardiovascular Function Stable: Yes Hydration Status Stable: Yes Pain Control Satisfactory: Yes Nausea and Vomiting Control Satisfactory: Yes Mental Status Recovered: Yes Vital Signs: Last Vital Signs Temp 36.8 C 04/14/21 06:00 Pulse 78 04/14/21 06:00 Resp 16 04/14/21 06:00 BP 110/57 L 04/14/21 06:00 Pulse Ox 98 04/14/21 06:00
[2021-04-14] MEDS: Docusate Sodium 100 MG Cap PO SCH ×2 (08:05→20:04)
--- NOTE | 2021-04-14 10:02 | PCM.PNPP ---
- General Info Date of Service: 04/14/21 Functional Status: Reports: Pain Controlled, Tolerating Diet, Ambulating, Urinating - Review of Systems General: Reports: Fatigue. Denies: Fever, Weakness Pulmonary: Denies: Shortness of Breath Cardiovascular: Denies: Chest Pain, Palpitations, Lightheadedness Gastrointestinal: Reports: Abdominal Pain (mild cramping, oral pain meds help alleviate) Genitourinary: Reports: No Symptoms Musculoskeletal: Reports: No Symptoms Skin: Reports: No Symptoms Neurological: Reports: No Symptoms Psychiatric: Reports: No Symptoms - General Info Date of Service: 04/14/21 - Patient Data Vital Signs - Most Recent: Last Vital Signs Temp 36.8 C 04/14/21 06:00 Pulse 78 04/14/21 06:00 Resp 16 04/14/21 06:00 BP 110/57 L 04/14/21 06:00 Pulse Ox 98 04/14/21 06:00 Weight - Most Recent: 71.214 kg I&O - Last 24 Hours: Intake & Output 04/13/21 04/14/21 04/14/21 22:59 06:59 14:59 Intake Total 677 Output Total 47% 92% Balance 20B -92% Lab Results - Last 24 Hours: Laboratory Results - last 24 hr 04/14/21 Range/Units 05:07 Hgb 9.3 L (12.0-16.0) g/dL Hct 29.8 L (36.0-46.0) % Med Orders - Current: Current Medications Bisacodyl (Bisacodyl 10 Mg Supp) 10 mg RECTAL ONETIME PRN PRN Reason: Constipation Butorphanol Tartrate (Butorphanol 1 Mg/Ml Sdv) 1 mg IVPUSH Q1H PRN PRN Reason: Pain (severe 7-10) Carboprost Tromethamine (Carboprost Tromethamine 250 Mcg/1 Ml Amp) 250 mcg IM ASDIRECTED PRN PRN Reason: Post Hemorrhage Diphenhydramine HCl (Diphenhydramine 50 Mg/Ml Sdv) 25 mg IVPUSH Q6H PRN PRN Reason: Itching or Nausea Last Admin: 04/13/21 14:31 Dose: 25 mg Documented by: Docusate Sodium (Docusate Sodium 100 Mg Cap) 100 mg PO BID DAVID Last Admin: 04/14/21 08:05 Dose: 100 mg Documented by: Emollient Ointment (Lanolin 100% Cream 7 Gm Tube) 0 gm TOP ASDIRECTED PRN PRN Reason: Sore Nipples Oxytocin/Sodium Chloride (Oxytocin 30 Unit/500 Ml-Ns) 30 unit in 500 mls @ 999 mls/hr IV TITRATE [facility] Tranexamic Acid 1,000 mg/ (Sodium Chloride) 110 mls @ 660 mls/hr IV ONETIME PRN PRN Reason: Bleeding Lactated Ringer's (Ringers, Lactated) 1,000 mls @ 500 mls/hr IV BOLUS [facility] Last Admin: 04/13/21 06:00 Dose: 500 mls/hr Documented by: Lactated Ringer's (Ringers, Lactated) 1,000 mls @ 150 mls/hr IV ASDIRECTED DAVID Lactated Ringer's (Ringers, Lactated) 1,000 mls @ 125 mls/hr IV ASDIRECTED [facility] Last Admin: 04/13/21 13:15 Dose: 125 mls/hr Documented by: Ibuprofen (Ibuprofen 800 Mg Tab) 800 mg PO Q8H PRN PRN Reason: mild pain or fever Lidocaine HCl (Lidocaine 1% 50 Ml Mdv) 50 ml INJECT ONETIME PRN PRN Reason: Laceration repair Methylergonovine Maleate (Methylergonovine 0.2 Mg/1 Ml Amp) 0.2 mg IM ASDIRECTED PRN PRN Reason: Post Hemorrhage Misoprostol (Misoprostol 200 Mcg Tab) 200 mcg PO ONETIME PRN PRN Reason: Post Hemorrhage Nalbuphine HCl (Nalbuphine 10 Mg/1 Ml Vial) 10 mg IVPUSH Q1H PRN PRN Reason: Pain (severe 7-10) Ondansetron HCl (Ondansetron 4 Mg/2 Ml Sdv) 4 mg IVPUSH Q4H PRN PRN Reason: Nausea/Vomiting Oxycodone/Acetaminophen (Acetaminophen/Oxycodone 325-5 Mg Tab) 1 tab PO Q4H PRN PRN Reason: Pain (severe 7-10) Oxycodone/Acetaminophen (Acetaminophen/Oxycodone 325-5 Mg Tab) 2 tab PO Q4H PRN PRN Reason: Pain (severe 7-10) Oxytocin (Oxytocin 10 Units/1 Ml Sdv) 10 unit IM ASDIRECTED PRN PRN Reason: Excessive Vaginal Bleeding Simethicone (Simethicone 80 Mg Tab.Chew) 160 mg PO QID [facility] Last Admin: 04/14/21 06:29 Dose: 160 mg Documented by: Sodium Chloride (Sodium Chloride 0.9% 10 Ml Sdv) 10 ml IV ASDIRECTED PRN PRN Reason: IV Use Sterile Water (Water For Irrigation,Sterile 1,000 Ml Container) 1,000 ml IRR ASDIRECTED PRN PRN Reason: delivery Discontinued Medications Citric Acid/Sodium Citrate (Citric Acid/Sodium Citrate Solution 30 Ml Cup) 30 ml PO ONETIME ONE Stop: 04/13/21 05:31 Last Admin: 04/13/21 10:58 Dose: Not Given Documented by: Ephedrine Sulfate (Ephedrine 50 Mg/Ml Sdv) Confirm Administered Dose 50 mg .ROUTE .STK-MED ONE Stop: 04/13/21 07:20 Fentanyl (Fentanyl 100 Mcg/2 Ml Sdv) Confirm Administered Dose 100 mcg .ROUTE .STK-MED ONE Stop: 04/13/21 07:19 Ampicillin Sodium 1 gm/ Sodium (Chloride) 50 mls @ 100 mls/hr IV Q4H [facility] Last Admin: 04/13/21 11:00 Dose: Not Given Documented by: Cefazolin Sodium/Dextrose (Ancef 2 Gm/50 Ml) Confirm Administered Dose 50 mls @ as directed .ROUTE .STK-MED ONE Stop: 04/13/21 07:20 Ibuprofen (Ibuprofen 800 Mg Tab) 800 mg PO Q8H PRN PRN Reason: mild pain or fever Ketorolac Tromethamine (Ketorolac 30 Mg/Ml Sdv) Confirm Administered Dose 30 mg .ROUTE .STK-MED ONE Stop: 04/13/21 07:20 Ketorolac Tromethamine (Ketorolac 30 Mg/Ml Sdv) 30 mg IVPUSH Q6H [facility] Stop: 04/14/21 09:01 Last Admin: 04/14/21 08:04 Dose: 30 mg Documented by: Morphine Sulfate (Morphine Pf 10 Mg/10 Ml Sdv) Confirm Administered Dose 10 mg .ROUTE .STK-MED ONE Stop: 04/13/21 07:18 Nalbuphine HCl (Nalbuphine 10 Mg/1 Ml Vial) 5 mg IVPUSH Q3H PRN PRN Reason: Pruritis Stop: 04/14/21 07:30 Ondansetron HCl (Ondansetron 4 Mg/2 Ml Sdv) 4 mg IVPUSH ONETIME ONE Stop: 04/13/21 06:01 Last Admin: 04/13/21 10:58 Dose: Not Given Documented by: Ondansetron HCl (Ondansetron 4 Mg/2 Ml Sdv) Confirm Administered Dose 4 mg .ROUTE .STK-MED ONE Stop: 04/13/21 07:20 Oxytocin (Oxytocin 10 Units/1 Ml Sdv) Confirm Administered Dose 20 unit .ROUTE .STK-MED ONE Stop: 04/13/21 07:20 Oxytocin (Oxytocin 10 Units/1 Ml Sdv) Confirm Administered Dose 20 unit .ROUTE .STK-MED ONE Stop: 04/13/21 08:48 - Infant Interaction Support Person: - Recovery Exam Fundal Tone: Firm Fundal Level: 1 Fingerbreadths Below Umbilicus Fundal Placement: Midline Lochia Amount: Scant Lochia Color: Rubra/Red Perineum Description: Intact, Minimal Bruising/Swelling Episiotomy/Laceration: None Bladder Status: Indwelling Catheter in Place Urinary Elimination: Indwelling Catheter - Exam General: Alert, Oriented Lungs: Normal Respiratory Effort Cardiovascular: Regular Rate, Regular Rhythm GI/Abdominal Exam: Normal Bowel Sounds, Soft, Non-Tender Extremities: Pedal Edema (trace). No: Trent's Sign Skin: Warm, Dry, Intact Wound/Incisions: Dressing Dry and Intact Neurological: No New Focal Deficit Psy/Mental Status: Alert, Normal Affect, Normal Mood - Problem List & Annotations (1) delivery delivered SNOMED Code(s): 340009414 Code(s): O82 - ENCOUNTER FOR DELIVERY WITHOUT INDICATION Status: Acute Current Visit: No - Problem List Review Problem List Initiated/Reviewed/Updated: Yes - My Orders Last 24 Hours: My Active Orders 04/13/21 Lunch Regular Diet [DIET] 04/13/21 12:00 Simethicone 160 mg PO QID 04/14/21 15:30 Ibuprofen [Motrin] 800 mg PO Q8H PRN - Assessment Assessment:: POD 1 status post repeat LTCS - Plan Plan:: VS and labs are reassuring. Continue postoperative cares. Ambulate today. going well overall.
[2021-04-14] MEDS: Ibuprofen 800 MG Tab PO PRN ×2 (13:52→23:35)
[2021-04-14] MEDS: Acetaminophen/oxyCODONE 325-5 MG Tab PO PRN ×3 (14:55→23:34)
[2021-04-15] MEDS: Acetaminophen/oxyCODONE 325-5 MG Tab PO PRN ×2 (04:50→09:16)
[2021-04-15 06:32] VITALS: BP 105/55; PULSE 81
[2021-04-15] MEDS: Simethicone 80 MG Tab.Chew PO SCH (06:32)
--- NOTE | 2021-04-15 09:02 | PCM.PNPP ---
- General Info Date of Service: 04/15/21 Functional Status: Reports: Pain Controlled, Tolerating Diet, Ambulating, Urinating - Review of Systems General: Reports: Fatigue. Denies: Fever, Weakness Pulmonary: Denies: Shortness of Breath Cardiovascular: Denies: Chest Pain, Palpitations, Lightheadedness Gastrointestinal: Reports: Abdominal Pain (incisional mild) Genitourinary: Denies: Flank Pain Musculoskeletal: Reports: No Symptoms Skin: Reports: No Symptoms Neurological: Reports: No Symptoms Psychiatric: Reports: No Symptoms - General Info Date of Service: 04/15/21 - Patient Data Vital Signs - Most Recent: Last Vital Signs Temp 36.0 C L 04/15/21 05:00 Pulse 81 04/15/21 05:00 Resp 17 04/15/21 05:00 BP 105/55 L 04/15/21 05:00 Pulse Ox 99 04/15/21 05:00 Weight - Most Recent: 71.214 kg Med Orders - Current: Current Medications Bisacodyl (Bisacodyl 10 Mg Supp) 10 mg RECTAL ONETIME PRN PRN Reason: Constipation Butorphanol Tartrate (Butorphanol 1 Mg/Ml Sdv) 1 mg IVPUSH Q1H PRN PRN Reason: Pain (severe 7-10) Carboprost Tromethamine (Carboprost Tromethamine 250 Mcg/1 Ml Amp) 250 mcg IM ASDIRECTED PRN PRN Reason: Post Hemorrhage Diphenhydramine HCl (Diphenhydramine 50 Mg/Ml Sdv) 25 mg IVPUSH Q6H PRN PRN Reason: Itching or Nausea Last Admin: 04/13/21 14:31 Dose: 25 mg Documented by: Docusate Sodium (Docusate Sodium 100 Mg Cap) 100 mg PO BID [facility] Last Admin: 04/14/21 20:04 Dose: 100 mg Documented by: Emollient Ointment (Lanolin 100% Cream 7 Gm Tube) 0 gm TOP ASDIRECTED PRN PRN Reason: Sore Nipples Last Admin: 04/14/21 12:29 Dose: 7 gm Documented by: Oxytocin/Sodium Chloride (Oxytocin 30 Unit/500 Ml-Ns) 30 unit in 500 mls @ 999 mls/hr IV TITRATE [facility] Tranexamic Acid 1,000 mg/ (Sodium Chloride) 110 mls @ 660 mls/hr IV ONETIME PRN PRN Reason: Bleeding Lactated Ringer's (Ringers, Lactated) 1,000 mls @ 500 mls/hr IV BOLUS [facility] Last Admin: 04/13/21 06:00 Dose: 500 mls/hr Documented by: Lactated Ringer's (Ringers, Lactated) 1,000 mls @ 150 mls/hr IV ASDIRECTED DAVID Lactated Ringer's (Ringers, Lactated) 1,000 mls @ 125 mls/hr IV ASDIRECTED [facility] Last Admin: 04/13/21 13:15 Dose: 125 mls/hr Documented by: Ibuprofen (Ibuprofen 800 Mg Tab) 800 mg PO Q8H PRN PRN Reason: mild pain or fever Last Admin: 04/14/21 23:35 Dose: 800 mg Documented by: Lidocaine HCl (Lidocaine 1% 50 Ml Mdv) 50 ml INJECT ONETIME PRN PRN Reason: Laceration repair Methylergonovine Maleate (Methylergonovine 0.2 Mg/1 Ml Amp) 0.2 mg IM ASDIRECTED PRN PRN Reason: Post Hemorrhage Misoprostol (Misoprostol 200 Mcg Tab) 200 mcg PO ONETIME PRN PRN Reason: Post Hemorrhage Nalbuphine HCl (Nalbuphine 10 Mg/1 Ml Vial) 10 mg IVPUSH Q1H PRN PRN Reason: Pain (severe 7-10) Ondansetron HCl (Ondansetron 4 Mg/2 Ml Sdv) 4 mg IVPUSH Q4H PRN PRN Reason: Nausea/Vomiting Oxycodone/Acetaminophen (Acetaminophen/Oxycodone 325-5 Mg Tab) 1 tab PO Q4H PRN PRN Reason: Pain (severe 7-10) Last Admin: 04/14/21 10:53 Dose: 1 tab Documented by: Oxycodone/Acetaminophen (Acetaminophen/Oxycodone 325-5 Mg Tab) 2 tab PO Q4H PRN PRN Reason: Pain (severe 7-10) Last Admin: 04/15/21 04:50 Dose: 2 tab Documented by: Oxytocin (Oxytocin 10 Units/1 Ml Sdv) 10 unit IM ASDIRECTED PRN PRN Reason: Excessive Vaginal Bleeding Simethicone (Simethicone 80 Mg Tab.Chew) 160 mg PO QID [facility] Last Admin: 04/15/21 06:32 Dose: Not Given Documented by: Sodium Chloride (Sodium Chloride 0.9% 10 Ml Sdv) 10 ml IV ASDIRECTED PRN PRN Reason: IV Use Sterile Water (Water For Irrigation,Sterile 1,000 Ml Container) 1,000 ml IRR ASDIRECTED PRN PRN Reason: delivery Discontinued Medications Citric Acid/Sodium Citrate (Citric Acid/Sodium Citrate Solution 30 Ml Cup) 30 ml PO ONETIME ONE Stop: 04/13/21 05:31 Last Admin: 04/13/21 10:58 Dose: Not Given Documented by: Ephedrine Sulfate (Ephedrine 50 Mg/Ml Sdv) Confirm Administered Dose 50 mg .ROUTE .STK-MED ONE Stop: 04/13/21 07:20 Fentanyl (Fentanyl 100 Mcg/2 Ml Sdv) Confirm Administered Dose 100 mcg .ROUTE .STK-MED ONE Stop: 04/13/21 07:19 Ampicillin Sodium 1 gm/ Sodium (Chloride) 50 mls @ 100 mls/hr IV Q4H [facility] Last Admin: 04/13/21 11:00 Dose: Not Given Documented by: Cefazolin Sodium/Dextrose (Ancef 2 Gm/50 Ml) Confirm Administered Dose 50 mls @ as directed .ROUTE .STK-MED ONE Stop: 04/13/21 07:20 Ibuprofen (Ibuprofen 800 Mg Tab) 800 mg PO Q8H PRN PRN Reason: mild pain or fever Ketorolac Tromethamine (Ketorolac 30 Mg/Ml Sdv) Confirm Administered Dose 30 mg .ROUTE .STK-MED ONE Stop: 04/13/21 07:20 Ketorolac Tromethamine (Ketorolac 30 Mg/Ml Sdv) 30 mg IVPUSH Q6H [facility] Stop: 04/14/21 09:01 Last Admin: 04/14/21 08:04 Dose: 30 mg Documented by: Morphine Sulfate (Morphine Pf 10 Mg/10 Ml Sdv) Confirm Administered Dose 10 mg .ROUTE .STK-MED ONE Stop: 04/13/21 07:18 Nalbuphine HCl (Nalbuphine 10 Mg/1 Ml Vial) 5 mg IVPUSH Q3H PRN PRN Reason: Pruritis Stop: 04/14/21 07:30 Ondansetron HCl (Ondansetron 4 Mg/2 Ml Sdv) 4 mg IVPUSH ONETIME ONE Stop: 04/13/21 06:01 Last Admin: 04/13/21 10:58 Dose: Not Given Documented by: Ondansetron HCl (Ondansetron 4 Mg/2 Ml Sdv) Confirm Administered Dose 4 mg .ROUTE .STK-MED ONE Stop: 04/13/21 07:20 Oxytocin (Oxytocin 10 Units/1 Ml Sdv) Confirm Administered Dose 20 unit .ROUTE .STK-MED ONE Stop: 04/13/21 07:20 Oxytocin (Oxytocin 10 Units/1 Ml Sdv) Confirm Administered Dose 20 unit .ROUTE .STK-MED ONE Stop: 04/13/21 08:48 - Interaction Support Person: - Recovery Exam Fundal Tone: Firm Fundal Level: 2 Fingerbreadths Below Umbilicus Fundal Placement: Midline Lochia Amount: Scant Lochia Color: Rubra/Red Perineum Description: Intact, Minimal Bruising/Swelling Episiotomy/Laceration: None Bladder Status: Voiding Urinary Elimination: Voided - Exam General: Alert, Oriented Lungs: Normal Respiratory Effort Cardiovascular: Regular Rate, Regular Rhythm GI/Abdominal Exam: Normal Bowel Sounds, Soft Extremities: Pedal Edema (trace). No: Trent's Sign Skin: Warm, Dry, Intact Wound/Incisions: No Drainage. No: Erythema Neurological: No New Focal Deficit Psy/Mental Status: Alert, Normal Affect, Normal Mood - Problem List & Annotations (1) delivery delivered SNOMED Code(s): 472191587 Code(s): O82 - ENCOUNTER FOR DELIVERY WITHOUT INDICATION Status: Acute Current Visit: No - Problem List Review Problem List Initiated/Reviewed/Updated: Yes - My Orders Last 24 Hours: My Active Orders 04/14/21 15:30 Ibuprofen [Motrin] 800 mg PO Q8H PRN 04/15/21 08:59 Ready for Discharge [RC] PER UNIT ROUTINE - Assessment Assessment:: POD 2 status post repeat LTCS - Plan Plan:: Doing well overall--VS are stable. Would like to go home today. Discharge instructions reviewed. Follow up at [facility] 2 weeks. Discharge to home today.
[2021-04-15] MEDS: Docusate Sodium 100 MG Cap PO SCH (09:16)
== END 2021-04-15 11:45 | disposition home or self-care (01) | DRG 540 ==
LOC: MW.OB 05:22
PROVIDERS: ADMIT Obstetrics & Gynecology; ATTEND Obstetrics & Gynecology
PROC: 10D00Z1 Extraction of Products of Conception, Low, Open Approach (ICD-10-PCS; principal; 2021-04-13)
DX: O34.211 Maternal care for low transverse scar from previous cesarean delivery (principal); O99.344 Other mental disorders complicating childbirth; F41.9 Anxiety disorder, unspecified; Z20.822 Contact with and (suspected) exposure to COVID-19; Z37.0 Single live birth; Z3A.39 39 weeks gestation of pregnancy
CPT/HCPCS: 01961; 36415; 59025; 82803; 85014; 85018; 85027; 86592; 86850; 86900; 86901; A9270-GY; J0690; J1200; J1885; J2270; J2405; J2590; J3010; J7120; U0002

== ENCOUNTER 2025-01-13 10:29 | Emergency (ER) | payer SELFPAY ==
[2025-01-13 10:37] VITALS: BP 115/39; PULSE 97
== END 2025-01-13 11:26 | disposition home or self-care (01) ==
LOC: MW.ED 10:29
DX: L08.9 Local infection of the skin and subcutaneous tissue, unspecified (principal); B95.8 Unspecified staphylococcus as the cause of diseases classified elsewhere; F17.210 Nicotine dependence, cigarettes, uncomplicated; Z75.8 Other problems related to medical facilities and other health care
CPT/HCPCS: 99283